=== PATIENT | male | born 1955 | race Caucasian/White ===

== ENCOUNTER 2021-11-10 18:02 | Outpatient (REF) | payer MEDICARE, BC, SELFPAY ==
[2021-11-10 20:00] LABS: Basophils Absolute Auto 0.02 K/uL (0.00-0.30); Basophils Percent Auto 0.4 % (0.0-3.0); Eosinophils Percent Auto 2.1 % (0.0-7.0); Hematocrit 38.1 % (37.0-53.0); Hemoglobin* 11.9 gm/dL (13.5-17.5); Immature Granulocytes Abs Auto 0.05 K/uL (0.00-0.30); Lymphocytes Absolute Auto 1.31 K/uL (0.90-2.90); Lymphocytes Percent Auto 27.1 % (20-44); Mean Corpuscular HGB Conc 31 gm/dL (32-36); Mean Corpuscular Hemoglobin 26 pg (26-34); Mean Corpuscular Volume 84 fL (80-100); Monocytes Percent Auto 7.4 % (0.0-11.0); Platelet Count* 215 K/uL (140-440); RDW Coefficient of Variation % 13.9 % (11.5-15.5); Red Blood Count 4.56 m/uL (4.30-5.90); White Blood Count* 4.84 K/uL (4.50-11.00)
[2021-11-10 20:01] LABS: Albumin* 3.9 g/dL (3.3-5.0); Chloride* 105 mmol/L (96-114); Potassium* 5.4 mmol/L (3.6-5.1); Sodium* 138 mmol/L (135-149)
[2021-11-10 20:03] LABS: Carbon Dioxide* 27 mmol/L (20-32); Creatinine* 2.1 mg/dL (0.5-1.5); Estimated Glomerular Filt Rate 34.08
[2021-11-10 20:04] LABS: Alanine Aminotransferase* 29 U/L (4-50); Alkaline Phosphatase* 126 U/L (40-150); Aspartate Amino Transferase* 33 U/L (12-35); Bilirubin Direct* 0.6 mg/dL (0.0-0.5); Bilirubin Total* 0.9 mg/dL (0.1-1.5); Blood Urea Nitrogen* 27 mg/dL (7-30); Calcium* 9.1 mg/dL (8.4-10.6); Glucose* 320 mg/dL (60-115); Magnesium* 1.7 mg/dL (1.5-2.6); Total Protein* 6.5 g/dL (6.0-8.3)
[2021-11-10 20:07] LABS: Slide Review Reflex No
[2021-11-15 02:01] LABS: Cyclosporine A by HPLC-MS/MS 624.7 ng/mL
== END 2021-11-10 18:03 | disposition home or self-care (01) ==
LOC: LAB 18:02
PROVIDERS: PCP Family Medicine; Visit Provider Internal Medicine Gastroenterology
DX: Z94.4 Liver transplant status (principal); Z79.899 Other long term (current) drug therapy
CPT/HCPCS: 36415; 80048; 80076; 80158; 83735; 85025

== ENCOUNTER 2022-03-12 07:52 | Outpatient (CLI) | payer MEDICARE, BC, SELFPAY | END 2022-03-12 07:53 | disposition home or self-care (01) | LOC: AMB 04-09 07:38 | PROVIDERS: PCP Family Medicine; Visit Provider Family Medicine | DX: R19.00 Intra-abdominal and pelvic swelling, mass and lump, unspecified site (principal); R10.9 Unspecified abdominal pain; R53.1 Weakness | CPT/HCPCS: A0425; A0427 ==

== ENCOUNTER 2022-05-02 14:00 | Outpatient (RCR) | payer MEDICARE, BC, SELFPAY ==
[2022-05-02 14:39] LABS: Basophils Absolute Auto 0.02 K/uL (0.00-0.30); Basophils Percent Auto 0.2 % (0.0-3.0); Eosinophils Absolute Auto 0.03 K/uL (0.00-0.50); Eosinophils Percent Auto 0.3 % (0.0-7.0); Immature Granulocytes Abs Auto 0.03 K/uL (0.00-0.30); Immature Granulocytes Pct Auto 0.3 %; Lymphocytes Percent Auto 18.1 % (20-44); Mean Corpuscular HGB Conc 32 gm/dL (32-36); Mean Corpuscular Hemoglobin 26 pg (26-34); Mean Corpuscular Volume 81 fL (80-100); Neutrophils Percent Auto 74.1 % (42.0-72.0); Platelet Count* 305 K/uL (140-440); RDW Coefficient of Variation % 15.5 % (11.5-15.5); Red Blood Count 4.22 m/uL (4.30-5.90)
[2022-05-02 14:41] LABS: Slide Review Reflex No
[2022-05-02 15:01] LABS: Chloride* 108 mmol/L (96-114)
[2022-05-02 15:03] LABS: Bilirubin Direct* 0.4 mg/dL (0.0-0.5); Bilirubin Total* 0.8 mg/dL (0.1-1.5); Carbon Dioxide* 24 mmol/L (20-32); Creatinine* 1.8 mg/dL (0.5-1.5); Estimated Glomerular Filt Rate 41 ml/min; Total Protein* 7.1 g/dL (6.0-8.3)
[2022-05-02 15:04] LABS: Alanine Aminotransferase* 26 U/L (4-50); Alkaline Phosphatase* 111 U/L (40-150); Aspartate Amino Transferase* 35 U/L (12-35); Blood Urea Nitrogen* 24 mg/dL (7-30); Calcium* 8.8 mg/dL (8.4-10.6); Glucose* 255 mg/dL (60-115); Magnesium* 1.3 mg/dL (1.5-2.6)
[2022-05-02 16:18] LABS: Sodium* 142 mmol/L (135-149)
[2022-05-05 10:24] LABS: Cyclosporine A by HPLC-MS/MS 178.9 ng/mL
== END 2023-04-04 15:17 | disposition home or self-care (01) ==
LOC: LAB 14:00
PROVIDERS: PCP Family Medicine; Visit Provider Internal Medicine Gastroenterology
DX: Z94.4 Liver transplant status (principal); Z79.899 Other long term (current) drug therapy
CPT/HCPCS: 36415; 80048; 80076; 80158; 83735; 85025

== ENCOUNTER 2022-06-01 12:44 | Outpatient (REF) | payer MEDICARE, BC, SELFPAY | END 2022-06-01 12:45 | disposition home or self-care (01) | LOC: NPINS 12:44 | PROVIDERS: PCP Family Medicine; Visit Provider Internal Medicine Gastroenterology | DX: Z94.4 Liver transplant status (principal); Z79.899 Other long term (current) drug therapy | CPT/HCPCS: 80158 ==

== ENCOUNTER 2022-06-05 14:37 | Outpatient (CLI) | payer MEDICARE, BC, OTHER, SELFPAY | END 2022-06-05 14:38 | disposition home or self-care (01) | LOC: AMB 06-06 22:49 | PROVIDERS: PCP Family Medicine; Visit Provider Family Medicine | DX: R53.1 Weakness (principal); R52 Pain, unspecified | CPT/HCPCS: A0425; A0427 ==

== ENCOUNTER 2022-11-03 22:06 | Outpatient (CLI) | payer MEDICARE, OTHER, BC, SELFPAY | END 2022-11-03 22:07 | disposition home or self-care (01) | LOC: AMB 11-07 09:42 | PROVIDERS: PCP Family Medicine; Visit Provider Emergency Medicine Emergency Medical Services | DX: R10.11 Right upper quadrant pain (principal) | CPT/HCPCS: A0425; A0427 ==

== ENCOUNTER 2022-11-03 23:03 | Emergency (ER) | payer MEDICARE, BC, SELFPAY ==
[2022-11-03 23:10] VITALS: BP 187/101; PULSE 91; RESP 20; TEMP 36.9; O2SAT 95
--- NOTE | 2022-11-03 23:27 | ED_ITS ---
HPI - Abdominal Pain General Chief Complaint: Abdominal Pain Stated Complaint: abdominal pain Time Seen by Provider: 11/03/22 23:19 History of Present Illness HPI narrative: This 67-year-old male comes in by ambulance because of uncontrolled abdominal pain. He has a mass in his liver and is taking oral Dilaudid at home for pain relief. He states that his pain became worse 3 or 4 hours ago. He did take 4 mg of Dilaudid at home without any relief. Ambulance personnel did establish an IV in he received fentanyl 100 mcg which also did not bring much relief. Patient does arrive with normal vital signs except for elevated blood pressure. He states that there is no other treatment for his condition in the plans that are involved currently other than pain relief. This was the main reason for his visit here tonight. Related Data Allergies Allergy/AdvReac Type Severity Reaction Status Date / Time No Known Drug Allergies Allergy Verified 11/03/22 23:15 Review of Systems Status of ROS Reports: 10 or more systems reviewed and unremarkable except as noted in History and below Narrative Constitutional: No fevers, no weight gain or loss. Eyes: No discharge. No vision changes. HENT: No congestion, no sore throat, no ear pain. Cardiovascular: No chest pain, no palpitations. Respiratory: No shortness of breath, no wheezes, no cough. Gastrointestinal: No vomiting, no diarrhea. Upper abdominal pain related to a mass in his liver. Genitourinary: No dysuria, no hematuria. Musculoskeletal: Normal range of motion. Skin: No rashes, no pruritis. Neurological: No dizziness, weakness, sensory change, speech change. Endo/Heme/Allergies: No bruising or bleeding. No polydipsia. Pysch: no suicidality, no anxiety, no insomnia. All other systems reviewed and are negative. [facility] Social History Smoking Status: Never smoker Do you use any of these nicotine containing products: None How often do you have a drink containing alcohol: never AUDIT-C Alcohol total score: 0 Non-prescribed substance use: denies use Exam Narrative: Exam Narrative: Constitutional: Well-developed, well-nourished, no acute distress. HEENT: Normocephalic, atraumatic. Neck: Normal range of motion. Nontender. Supple. Heart: Regular. No murmurs. Normal rate. Intact distal pulses. Lungs: Clear to auscultation. No chest discomfort. No wheezes, rhonchi, or rales. Abdomen: Normal bowel sounds. Upper epigastric abdominal pain. No rebound tenderness. Genitalia: Deferred. Back: No midline tenderness. Normal range of motion. Extremities: Normal range of motion. No injury. Skin: Intact. No rash. Warm. No erythema or pallor. Neurologic: No altered sensation. No weakness. Alert and oriented. Psychiatric: No suicidality. No anxiety or depression. No insomnia. Nursing notes and vitals signs are reviewed. Const: Vital Signs, click to edit/add: Vital Signs - 24 hr 11/03/22 23:10 Temperature 98.4 F Pulse Rate [Pulse Oximeter] 91 Respiratory Rate 20 Blood Pressure [Ri ght Upper Arm] 187/101 H Pulse Oximetry 95 Oxygen Delivery Me thod Room Air Course Vital Signs Vital signs: Initial Vital Signs Temperature 98.4 F 11/03/22 23:10 Temperature Source Temporal Artery Scan 11/03/22 23:10 Pulse Rate 91 11/03/22 23:10 Respiratory Rate 20 11/03/22 23:10 Blood Pressure 187/101 H 11/03/22 23:10 Blood Pressure Mean 129 H 11/03/22 23:10 Blood Pressure Position Supine 11/03/22 23:10 Pulse Oximetry 95 11/03/22 23:10 Oxygen Delivery Method Room Air 11/03/22 23:10 Vital Signs Temperature 98.4 F 11/03/22 23:10 Pulse Rate 91 11/03/22 23:10 Respiratory Rate 20 11/03/22 23:10 Blood Pressure 187/101 H 11/03/22 23:10 Pulse Oximetry 95 11/03/22 23:10 Oxygen Delivery Method Room Air 11/03/22 23:10 Temperature 98.4 F 11/03/22 23:10 Pulse Rate 91 11/03/22 23:10 Respiratory Rate 20 11/03/22 23:10 Blood Pressure 187/101 H 11/03/22 23:10 Pulse Oximetry 95 11/03/22 23:10 Oxygen Delivery Method Room Air 11/03/22 23:10 MDM - Abdominal Pain MDM Narrative Medical decision making narrative: This patient comes in with significantly worse pain in his upper abdomen related to a mass in his liver. The patient had family members that came soon after he arrived. He has been taking Dilaudid as needed at home but this did not help his pain today. He did receive an IV dose of Dilaudid 1 mg here in this brought sufficient relief to his pain. He did fall sleep. He is maintaining normal vital signs. I did again discuss with the patient and his family the options of checking labs or imaging studies. They declined these for now as he is in regular ongoing care with his doctors. The patient's states that she thinks that it may be time for him to receive hospice she has already made c onnection in this regard and plans to contact hospice next available opportunity. Discharge Plan Discharge Clinical Impression: Liver mass, Abdominal pain Patient Disposition: Home w/ Parent or Adult Condition: Improved Additional Instructions: Continue current plans. Take medications as needed and directed. Follow up with MD or return if worsening. Follow Up/Referrals: Ferny Hensley MD [Primary Care Provider] - Stand Alone Forms: [employer] Info Instructions
[2022-11-03] MEDS: HYDROmorphone 0.5 mg/0.5 ml inj 1 MG IVP (23:30)
[2022-11-04] VITALS: BP 172/97; PULSE 100; RESP 18; TEMP 36.9; O2SAT 95
== END 2022-11-04 00:19 | disposition home or self-care (01) ==
LOC: ED 11-04 00:06
PROVIDERS: Emergency Provider Emergency Medicine Emergency Medical Services; PCP Family Medicine
DX: R10.9 Unspecified abdominal pain (principal); K76.89 Other specified diseases of liver
CPT/HCPCS: 96374; 99283; 99284; J1170

== ENCOUNTER 2022-11-11 17:33 | Emergency (ER) | payer MEDICARE, OTHER, BC, SELFPAY ==
[2022-11-11] VITALS (25 sets, daily range): BP systolic 168–190; BP diastolic 86–101; PULSE 66–80; RESP 16; TEMP 36.6; O2SAT 96–99; BMI 25.8
--- NOTE | 2022-11-11 17:45 | ED.GENADULT ---
HPI - General Adult General Time Seen by Provider: 17:45 Date Seen: 11/11/22 Chief complaint: Dizziness/Vertigo Stated complaint: light headed, dizzy Time Seen by Provider: 11/11/22 17:34 Source: patient and RN notes reviewed Mode of arrival: ambulatory Limitations: no limitations History of Present Illness HPI narrative: This 67-year-old gentleman is coming in with weakness, lightheadedness, dizziness and that got progressive over this afternoon. He has underlying liver cancer, recurrent. 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 Hepatocellular carcinoma. This surgery was done at the [facility]. They state there was a period of no follow-up due to COVID in his immunosuppression states that they did not want him coming in. He unfortunately was diagnosed with liver mass, abdominal wall mass that was recurrent liver cancer. He had a good day yesterday, was outside, helped water the garden. He states his appetite is overall fine. He will periodically have some nausea but overall appetite is fine. Denies any cough or cold symptoms, no chest pain, no shortness of breath, has chronic right upper quadrant abdomen and abdominal wall pain which is not new or changed. In denies any urinary symptoms, no changes in bowel habits. He denies any fevers or chills, no night sweats. When his pain goes up, his blood pressure seems to go up. His did give him an extra dilaudid orally at home just prior to coming in. They report progressive since of generalize weakness and lightheadedness/dizziness. Patient states he both felt like he might pass out as well as a sense of spinning sensation. States his legs just felt weak, denies any focal neurologic such as extremity or individual body part incoordination/malfunction, not working. Weakness is a sense of global weakness. His feels that his blood pressure does go up with his pain at times, wonders about talking to blood pressure management about her primary care provider. This let us into discussion about his cancer. He is on an oral regimen of chemotherapy which sounds like it is palliative, they tell me the oncologist has told them there is nothing further that can be done. Patient becomes tearful, does cry, he obviously still would like to keep living. They do understand this diagnosis is terminal for him. He is not enrolled in hospice yet. He would like some sense of reassurance that he is okay. Related Data Home Medications Medication Instructions Recorded Confirmed amlodipine 10 mg tablet 10 mg PO DAILY 11/11/22 11/11/22 apixaban 5 mg tablet (Eliquis) 5 mg PO BID 11/11/22 11/11/22 cyclosporine modified 100 mg 100 mg PO Q12H 11/11/22 11/11/22 capsule hydromorphone 2 mg tablet 2 - 4 mg PO Q4H PRN severe pain 11/11/22 11/11/22 insulin aspart U-100 100 unit/mL subcut 3XD 11/11/22 (3 mL) subcutaneous pen (Novolog FlexPen U-100 Insulin aspart) losartan 50 mg tablet mg PO 11/11/22 magnesium oxide 400 mg (241.3 mg 400 mg PO DAILY 11/11/22 11/11/22 magnesium) tablet methocarbamol 500 mg tablet 250 mg PO QID PRN muscle spasm 11/11/22 11/11/22 metoprolol tartrate 25 mg tablet 25 mg PO BID 11/11/22 11/11/22 multivitamin-iron sulfate 15 1 tab PO DAILY 11/11/22 11/11/22 mg-folic acid 400 mcg tablet (Tab-A-Hawa Multivitamin w-iron) ondansetron 4 mg disintegrating 4 mg PO Q8H PRN nausea/vomiting 11/11/22 11/11/22 tablet pantoprazole 40 mg tablet,delayed 40 mg PO QAM 11/11/22 11/11/22 release sorafenib 200 mg tablet 400 mg PO BID 11/11/22 11/11/22 torsemide 10 mg tablet 20 mg PO BID 11/11/22 11/11/22 Allergies Allergy/AdvReac Type Severity Reaction Status Date / Time meclizine Allergy Unknown Verified 11/11/22 19:41 morphine Allergy Unknown Verified 11/11/22 19:41 Review of Systems Status of ROS: Reports: 10 or more systems reviewed and unremarkable except as noted in History and below [facility] Social History Smoking Status: Never smoker Do you use any of these nicotine containing products: None How often do you have a drink containing alcohol: never AUDIT-C Alcohol total score: 0 Non-prescribed substance use: denies use Exam Const: Vital Signs, click to edit/add: Vital Signs - 24 hr 11/11/22 17:39 11/11/22 17:41 11/11/22 17:42 Temperature 97.8 F Pulse Rate 72 76 Pulse Rate [Pulse Oximeter] 74 Respiratory Rate 16 Blood Pressure 178/101 H 175/94 H Blood Pressure [Ri ght Upper Arm] 178/101 H Pulse Oximetry 98 97 98 Oxygen Delivery Me thod Room Air 11/11/22 17:43 11/11/22 17:45 11/11/22 18:00 Temperature Pulse Rate 72 70 76 Pulse Rate [Pulse Oximeter] Respiratory Rate Blood Pressure Blood Pressure [Ri ght Upper Arm] Pulse Oximetry 98 98 98 Oxygen Delivery Me thod 11/11/22 18:01 11/11/22 18:02 11/11/22 18:29 Temperature Pulse Rate 76 73 67 Pulse Rate [Pulse Oximeter] Respiratory Rate Blood Pressure 168/89 H Blood Pressure [Ri ght Upper Arm] Pulse Oximetry 98 98 98 Oxygen Delivery Me thod 11/11/22 18:30 11/11/22 18:31 11/11/22 18:32 Temperature Pulse Rate 67 66 68 Pulse Rate [Pulse Oximeter] Respiratory Rate Blood Pressure 181/96 H Blood Pressure [Ri ght Upper Arm] Pulse Oximetry 97 97 99 Oxygen Delivery Me thod 11/11/22 18:46 11/11/22 19:00 11/11/22 19:01 Temperature Pulse Rate 69 70 70 Pulse Rate [Pulse Oximeter] Respiratory Rate Blood Pressure 190/91 H Blood Pressure [Ri ght Upper Arm] Pulse Oximetry 98 99 96 Oxygen Delivery Me thod Documenting provider has reviewed patient's vital signs: yes Common normals: no apparent distress, oriented x3, no limitations, alert and well nourished General appearance: cooperative, comfortable and frail appearing Other: Tearful at times, does make eye contact and is certainly in very pleasant gentleman. HENMT: Common normals: normocephalic, head/scalp atraumatic, hearing grossly normal bilaterally, external ears normal and external nose normal Head and scalp: normocephalic and atraumatic Face and sinus: normal facial exam Nose: external nose normal External ear: external ears normal Eye: Common normals: PERRL, EOMs intact bilaterally, conjunctivae normal and no scleral icterus Conjunctiva: conjunctiva(e) normal Pupil: PERRL Neck & C-Spine: Common normals: full ROM, no lymphadenopathy, supple, no meningeal signs, no JVD and thyroid normal Thyroid: thyroid normal Chest: Common normals: inspection of chest normal Other: Complains of tenderness when I palpate over the right lower rib margin overlying the liver. Do not feel any definitive mass on the ribs themselves. Resp: Common normals: normal respiratory effort, no retractions, no use of accessory muscles and clear to auscultation bilaterally Effort & inspection: able to speak in complete sentences Auscultation: clear to auscultation bilaterally Cardio: Common normals: no JVD, regular rate, regular rhythm, S1 normal heart sound, S2 normal heart sound, no gallops, no clicks and no murmurs Rate: regular rate Rhythm: regular rhythm Heart sounds: S1 normal and S2 normal GI: Common normals: Normal to inspection, nondistended, normoactive bowel sounds present Other: Has palpable about slightly smaller than a golf ball size mass that I palpate in the right upper quadrant just below the right rib border. Seems like this is probably attach the abdominal wall. He is tender in the right upper quadrant along the liver border edge, do feel some irregularity to it. : Common normals: no CVA tenderness Bladder/kidney exam: no CVA tenderness Back & Pelvis: Common normals: no CVA tenderness and straight leg raise negative bilaterally Extremity: Common normals: no calf tenderness and no pedal edema Neuro: Common normals: oriented x3, CN's II-XII intact bilaterally, moves all extremities, no focal motor deficits and no sensory deficits noted Sensorium/orientation: alert Meningeal signs: no meningeal signs Course Course Hospital Course: This 67-year-old male is presenting with complaints of both lightheadedness/dizziness as well as vertigo, weakness as well. His underlying liver cancer, is chronically anticoagulated. Infectious etiology are certainly a possibility given his immunocompromised state being status post liver transplant in on the immunosuppressants. Will get a full complement of labs, start with head CT and chest x-ray. He is in agreement with plan. Currently hemodynamically stable and afebrile. Blood pressure actually is elevated he is known to have hypertension. Will continue to follow. Is exhibiting no chest pain. With the dizziness and complaint of vertigo but nonfocal neurologic exam, underlying cancer, do think a head CT noncontrast is indicated. Do not feel he needs any advanced imaging such as an MRI at this time. Will await the head CT result. Reevaluation(s) Time of Reevaluation #1: 19:28 Reevaluation #1: Have reviewed normal head CT, normal chest x-ray. Did review the hemoglobin of 9.5, they do not know where his hemoglobin has been running. This is not a level that I would transfuse but would have them follow with their clinic to ensure that this is his baseline. Did discuss the elevated procalcitonin. He is feeling better with the IV fluids, thinks he can urinate now. We will collect urinalysis. With elevated procalcitonin, did review that that can be indicative of an underlying infection. Patient would like to proceed with chest abdomen pelvis CT imaging. Time of Reevaluation #2: 20:52 Reevaluation #2: Patient is advised of the CT findings, did review the abdominal wall masses, the left axillary mass and the for a cardiac IV see nodular peripheral lesions. They believe all of these to have been there. He is on Eliquis for atrial fibrillation but should ideally protect him from an knee thrombotic events. He is not symptomatic for any concern for DVT or pulmonary embolus with his symptoms on arrival. He is feeling better with just 500 mL IV fluids and actually was requesting to go home at 8:25 p.m. we did need to wait for the urinalysis in this CT to be read. He is feeling better and requested discharge to home. Vital Signs Vital signs: Initial Vital Signs Temperature 97.8 F 11/11/22 17:39 Temperature Source Temporal Artery Scan 11/11/22 17:39 Pulse Rate 74 11/11/22 17:39 Respiratory Rate 16 11/11/22 17:39 Blood Pressure 178/101 H 11/11/22 17:39 Blood Pressure Mean 126 H 11/11/22 17:39 Blood Pressure Position Supine 11/11/22 17:39 Pulse Oximetry 98 11/11/22 17:39 Oxygen Delivery Method Room Air 11/11/22 17:39 Vital Signs Temperature 97.8 F 11/11/22 17:39 Pulse Rate 74 11/11/22 17:39 Respiratory Rate 16 11/11/22 17:39 Blood Pressure 178/101 H 11/11/22 17:39 Pulse Oximetry 98 11/11/22 17:39 Oxygen Delivery Method Room Air 11/11/22 17:39 Temperature 97.8 F 11/11/22 17:39 Pulse Rate 70 11/11/22 19:01 Respiratory Rate 16 11/11/22 17:39 Blood Pressure 190/91 H 11/11/22 19:01 Pulse Oximetry 96 11/11/22 19:01 Oxygen Delivery Method Room Air 11/11/22 17:39 Medical Decision Making Lab Data Lab results reviewed: Yes I reviewed the patient's lab results Labs: Lab Results 11/11/22 11/11/22 Range/Units 18:30 19:40 WBC 4.06 L (4.50-11.00) K/uL RBC 3.55 L (4.30-5.90) m/uL Hgb 9.5 L (13.5-17.5) gm/dL Hct 30.3 L (37.0-53.0) % MCV 85 (80-100) fL MCH 27 (26-34) pg MCHC 31 L (32-36) gm/dL RDW Coeff of Brissa 15.4 (11.5-15.5) % Plt Count 218 (140-440) K/uL Neut % (Auto) 76.4 H (42.0-72.0) % Lymph % (Auto) 16.0 L (20-44) % [place] % (Auto) 6.2 (0.0-11.0) % Eos % (Auto) 0.7 (0.0-7.0) % Baso % (Auto) 0.2 (0.0-3.0) % Neut # (Auto) 3.10 (1.7-7.0) K/uL Lymph # (Auto) 0.60 L (0.90-2.90) K/uL [place] # (Auto) 0.30 (0.00-0.90) K/UL Eos # (Auto) 0.00 (0.00-0.50) K/uL Baso # (Auto) 0.00 (0.00-0.30) K/uL Abs Immat Gran (auto) 0.00 (0.00-0.30) K/uL Imm/Tot Granulo (auto) 0.5 % Sodium 140 (135-149) mmol/L Potassium 3.7 (3.6-5.1) mmol/L Chloride 108 (96-114) mmol/L Carbon Dioxide 24 (20-32) mmol/L BUN 21 (7-30) mg/dL Creatinine 1.6 H (0.5-1.5) mg/dL Estimated Creat Clear 46.26 Estimated GFR 47 ml/min Glucose 148 H (60-115) mg/dL Lactate 1.3 (0.5-1.9) mmol/L Calcium 8.2 L (8.4-10.6) mg/dL Magnesium 1.8 (1.5-2.6) mg/dL Total Bilirubin 0.6 (0.1-1.5) mg/dL AST 41 H (12-35) U/L ALT 29 (4-50) U/L Alkaline Phosphatase 142 (40-150) U/L Troponin I 0.02 (0.01-0.04) ng/mL NT-Pro-B Natriuret Pep 2190 pg/mL Total Protein 6.9 (6.0-8.3) g/dL Albumin 3.5 (3.3-5.0) g/dL Procalcitonin 0.63 H (<0.50) ng/mL Urine Color Yellow (Yellow) Urine Appearance Clear (Clear) Urine pH 6.0 (5.0-8.5) Ur Specific Warren 1.025 (1.000-1.030) Urine Protein 3+ A (Negative) Urine Glucose (UA) Trace A (Negative) Urine Ketones Negative (Negative) Urine Blood 1+ A (Negative) Urine Nitrite Negative (Negative) Urine Bilirubin Negative (Negative) Urine Urobilinogen 0.2 (0.2-1.0) Ur Leukocyte Esterase Negative (Negative) Urine RBC 2-5 A (0-2) Urine WBC 0-2 (0-5) Urine WBC Clumps None (None) Ur Squamous Epith Cells Not Reportable Urine Bacteria Few A (None) Imaging Data CT scan - head: Attestation: I have reviewed the pertinent imaging results. Radiologist's impression: Patient: NIKKI GUZMAN Facility:?[facility] Patient ID:?[id number] Site Patient ID:?[id number]. Site :?1955 Study:?CT Head WITHOUT-11/11/2022 6:24:44 PM Ordering Physician:?Kim Ware Final Report: INDICATION: Lightheadedness. Dizziness. TECHNIQUE: CT of the head without contrast. Coronal and sagittal reformats are included. COMPARISON: None. FINDINGS: No CT evidence of acute cortical infarct. No loss of murillo white matter differentiation. No hyperdense vessels to suggest intracranial thrombus. No acute intracranial hemorrhage. No mass effect or midline shift. No hydrocephalus or extra-axial collections. Patchy hypoattenuation throughout the supratentorial white matter, typical for chronic microvascular ischemic change. Thick vascular calcifications intradural vertebral arteries and carotid siphons. No acute osseous abnormalities. Mastoid air cells and paranasal sinuses are clear. Normal soft tissues. IMPRESSION: IMPRESSION:1. No CT evidence of acute cortical infarct. No acute intracranial hemorrhage. No other acute intracranial findings. Please note that all CT scans at this facility use dose modulation, iterative reconstruction, and/or weight-based dosing when appropriate to reduce radiation dose to as low as reasonably achievable. Dictated by Brodie Martinez MD @ 11/11/2022 6:42:15 PM (Electronic Signature) Chest x-ray: Attestation: I have reviewed the pertinent imaging results. My impression: I see no acute pathology on patient's chest x-ray, await Radiology over-read. Radiologist's impression: Patient: NIKKI GUZMAN Facility:?[facility] Patient ID:?[id number] :?1955 Study:?XRay Chest 2 IMAGES-11/11/2022 6:27:34 PM Ordering Physician:?Kim Ware Final Report: INDICATION: Dizzy, lightheaded TECHNIQUE: Two view chest. COMPARISON: None available FINDINGS: Thoracic aortic calcifications. No cardiomegaly. No suspicious focal or diffuse pulmonary opacities. No pneumothorax or pleural effusion. No aggressive appearing osseous lesion. IMPRESSION: No acute pulmonary process. Dictated by Andres Mcmahan MD @ 11/11/2022 7:03:38 PM (Electronic Signature) CT Chest/Ab/Pelvis: Attestation: I have reviewed the pertinent imaging results. Radiologist's impression: Patient: NIKKI GUZMAN Facility:?[facility] Patient ID:?[id number] :?1955 Study:?CT Chest/Abd/Pelvis w/ 89cc [id number]/9/2023 8:04:47 PM Ordering Physician:Aiden Ware Final Report: INDICATION: Liver cancer. TECHNIQUE: CT chest, abdomen and pelvis acquired with 89 cc Isovue 370 IV contrast. COMPARISON: None. FINDINGS: CHEST Lungs and pleura: Right upper lobe calcified granuloma. Additional right lower lobe granuloma. Lungs are clear. No suspicious nodules or infiltrates. No effusions, thickening, or pneumothorax. Heart and vasculature: Heart size is normal. Thoracic aorta and pulmonary artery are normal in caliber. Coronary artery calcifications. Lymph node/mediastinum: Incidental 1.6 centimeter right thyroid nodule. Large left axillary mass, measuring approximately 8.5 centimeter. No mediastinal, or hilar adenopathy. Chest wall: Normal. Bones: No suspicious bone lesions. ABDOMEN AND PELVIS: Liver: No concerning hepatic lesions. Gallbladder and bile ducts: Cholecystectomy. Pancreas: Tiny 5 millimeter pancreatic body lesion, possibly side-branch IPMN. Spleen: Normal in caliber. No masses. Adrenal glands: Unremarkable. No masses. Kidneys: Normal in caliber. No suspicious masses. GI tract: Normal in caliber and appearance. No sign of mass or inflammation. Vasculature: Few rounded foci along the peripheral aspect of the infra cardiac IVC (series 2/image 129). Mild aortoiliac arterial calcifications. Mesenteric arteries are patent. Lymph nodes: No lymphadenopathy. Omentum/peritoneum/retroperitoneum/abdominal wall: Large heterogeneous mass involving the right abdominal mesentery and adjacent abdominal wall measuring approximately 15.1 x 9.9 x 14.9 centimeters. Additional adjacent ventral abdominal wall mass measuring up to 3.7 centimeters (series 6/image 192). Additional soft tissue thickening no free air. No drainable fluid collections. Pelvic organs: Mildly distended bladder. Bones: No suspicious bone lesions. IMPRESSION: Findings suggestive of known malignancy, including: - Large heterogeneous mass involving the right abdominal mesentery with invasion into the adjacent abdominal wall, difficult to accurately measure but measuring up to 14.9 centimeters. - Additional adjacent 3.7 centimeter ventral mesenteric/abdominal wall lesion. - Soft tissue thickening about the josé luis hepatis about the common bile duct and portal vein, possibly sequela of prior liver transplantation. - Large left axillary mass measuring approximately 8.5 centimeters. - Few rounded foci along the peripheral aspect of the infra cardiac IVC, possibly tumor thrombus given appearance. Lack of prior imaging does not allow for assessment of interval change. Otherwise, no acute intra-abdominal/pelvic abnormality. Case discussed with Jeanie Ware at 8:40 p.m. on November 11, 2022. Please note that all CT scans at this facility use dose modulation, iterative reconstruction, and/or weight-based dosing when appropriate to reduce radiation dose to as low as reasonably achievable. Dictated by Jake Finley MD @ 11/11/2022 8:40:13 PM (Electronic Signature) ECG Data Attestation: I personally reviewed and interpreted this ECG as follows: (Normal sinus rhythm, 73 beats per minute. No concerning ischemic change. QT corrected 442 milliseconds.) Prior ECG tracings: not available for review Critical Care Time Critical Care Time Critical Care Time: No Discharge Plan Discharge Clinical Impression: Cancer of liver, Dizziness, Weakness, Hypertension Patient Disposition: Home, Self-Care Condition: Stable Instructions: Weakness (ED), Hypertension (ED), Dizziness (ED) Additional Instructions: Recommend follow-up with your primary care provider this next week. Should you start to develop fevers, any specific symptoms suggestive of infection, please seek re-evaluation. Can have your primary care provider re-evaluate your blood pressure in see if further management is indicated. Uncontrolled pain is known to increased blood pressure, make sure you have reviewed your pain management with your primary care provider as well. Activity Level: Activity as Tolerated Discharge Diet: 2 gm Sodium Prescriptions: No Action losartan 50 mg tablet PO methocarbamol 500 mg tablet 250 mg PO QID PRN (Reason: muscle spasm) torsemide 10 mg tablet 20 mg PO BID hydromorphone 2 mg tablet 2 - 4 mg PO Q4H PRN (Reason: severe pain) magnesium oxide 400 mg (241.3 mg magnesium) tablet 400 mg PO DAILY amlodipine 10 mg tablet 10 mg PO DAILY pantoprazole 40 mg tablet,delayed release (DR/EC) 40 mg PO QAM cyclosporine modified 100 mg capsule 100 mg PO Q12H ondansetron 4 mg tablet,disintegrating 4 mg PO Q8H PRN (Reason: nausea/vomiting) insulin aspart U-100 [Novolog FlexPen U-100 Insulin] 100 unit/mL (3 mL) insulin pen subcut 3XD metoprolol tartrate 25 mg tablet 25 mg PO BID sorafenib 200 mg tablet 400 mg PO BID Eliquis 5 mg tablet 5 mg PO BID Tab-A-Hawa Multivitamin w-iron 15 mg iron- 400 mcg tablet 1 tab PO DAILY Follow Up/Referrals: Ferny Hensley MD [Primary Care Provider] - Stand Alone Forms: [facility] Info Instructions
--- NOTE | 2022-11-11 18:01 | CRLHL7_ITS ---
For Patients: As a result of the Century Cures Act, medical imaging exams and procedure reports are released immediately into your electronic medical record. You may view this report before your referring provider. If you have questions, please contact your health care provider. INDICATION: Lightheadedness. Dizziness. TECHNIQUE: CT of the head without contrast. Coronal and sagittal reformats are included. COMPARISON: None. FINDINGS: No CT evidence of acute cortical infarct. No loss of murillo white matter differentiation. No hyperdense vessels to suggest intracranial thrombus. No acute intracranial hemorrhage. No mass effect or midline shift. No hydrocephalus or extra-axial collections. Patchy hypoattenuation throughout the supratentorial white matter, typical for chronic microvascular ischemic change. Thick vascular calcifications intradural vertebral arteries and carotid siphons. No acute osseous abnormalities. Mastoid air cells and paranasal sinuses are clear. Normal soft tissues. IMPRESSION: IMPRESSION:1. No CT evidence of acute cortical infarct. No acute intracranial hemorrhage. No other acute intracranial findings. Please note that all CT scans at this facility use dose modulation, iterative reconstruction, and/or weight-based dosing when appropriate to reduce radiation dose to as low as reasonably achievable. Dictated by Brodie Martinez MD @ 11/11/2022 6:42:15 PM (Electronically Signed)
--- NOTE | 2022-11-11 18:02 | CRLHL7_ITS ---
For Patients: As a result of the Cures Act, medical imaging exams and procedure reports are released immediately into your electronic medical record. You may view this report before your referring provider. If you have questions, please contact your health care provider. INDICATION: Dizzy, lightheaded TECHNIQUE: Two view chest. COMPARISON: None available FINDINGS: Thoracic aortic calcifications. No cardiomegaly. No suspicious focal or diffuse pulmonary opacities. No pneumothorax or pleural effusion. No aggressive appearing osseous lesion. IMPRESSION: No acute pulmonary process. Dictated by Andres Mcmahan MD @ 11/11/2022 7:03:38 PM (Electronically Signed)
[2022-11-11 18:39] LABS: Lactate* 1.3 mmol/L (0.5-1.9)
[2022-11-11 18:40] LABS: Basophils Percent Auto 0.2 % (0.0-3.0); Eosinophils Percent Auto 0.7 % (0.0-7.0); Hematocrit 30.3 % (37.0-53.0); Hemoglobin* 9.5 gm/dL (13.5-17.5); Immature Granulocytes Pct Auto 0.5 %; Mean Corpuscular HGB Conc 31 gm/dL (32-36); Mean Corpuscular Hemoglobin 27 pg (26-34); Mean Corpuscular Volume 85 fL (80-100); Monocytes Percent Auto 6.2 % (0.0-11.0); Neutrophils Percent Auto 76.4 % (42.0-72.0); Platelet Count* 218 K/uL (140-440); RDW Coefficient of Variation % 15.4 % (11.5-15.5); Red Blood Count 3.55 m/uL (4.30-5.90); White Blood Count* 4.06 K/uL (4.50-11.00)
[2022-11-11 18:45] LABS: Slide Review Reflex No
[2022-11-11 18:56] LABS: Albumin* 3.5 g/dL (3.3-5.0)
[2022-11-11 18:57] LABS: Chloride* 108 mmol/L (96-114); Potassium* 3.7 mmol/L (3.6-5.1); Sodium* 140 mmol/L (135-149)
[2022-11-11 18:59] LABS: Aspartate Amino Transferase* 41 U/L (12-35); Bilirubin Total* 0.6 mg/dL (0.1-1.5); Carbon Dioxide* 24 mmol/L (20-32); Creatinine* 1.6 mg/dL (0.5-1.5); Est. Creatinine Clearance* 46.26; Estimated Glomerular Filt Rate 47 ml/min
[2022-11-11 19:00] LABS: Alanine Aminotransferase* 29 U/L (4-50); Alkaline Phosphatase* 142 U/L (40-150); Blood Urea Nitrogen* 21 mg/dL (7-30); Glucose* 148 mg/dL (60-115); Total Protein* 6.9 g/dL (6.0-8.3)
[2022-11-11 19:01] LABS: Calcium* 8.2 mg/dL (8.4-10.6); Magnesium* 1.8 mg/dL (1.5-2.6)
[2022-11-11 19:10] LABS: NT Pro B Type NatriureticPept* 2190 pg/mL
[2022-11-11 19:12] LABS: Troponin I* 0.02 ng/mL (0.01-0.04)
[2022-11-11 19:17] LABS: Procalcitonin* 0.63 ng/mL (<0.50)
--- NOTE | 2022-11-11 19:30 | CRLHL7_ITS ---
For Patients: As a result of the 21st Century Cures Act, medical imaging exams and procedure reports are released immediately into your electronic medical record. You may view this report before your referring provider. If you have questions, please contact your health care provider. INDICATION: Liver cancer. TECHNIQUE: CT chest, abdomen and pelvis acquired with 89 cc Isovue 370 IV contrast. COMPARISON: None. FINDINGS: CHEST Lungs and pleura: Right upper lobe calcified granuloma. Additional right lower lobe granuloma. Lungs are clear. No suspicious nodules or infiltrates. No effusions, thickening, or pneumothorax. Heart and vasculature: Heart size is normal. Thoracic aorta and pulmonary artery are normal in caliber. Coronary artery calcifications. Lymph node/mediastinum: Incidental 1.6 centimeter right thyroid nodule. Large left axillary mass, measuring approximately 8.5 centimeter. No mediastinal, or hilar adenopathy. Chest wall: Normal. Bones: No suspicious bone lesions. ABDOMEN AND PELVIS: Liver: No concerning hepatic lesions. Gallbladder and bile ducts: Cholecystectomy. Pancreas: Tiny 5 millimeter pancreatic body lesion, possibly side-branch IPMN. Spleen: Normal in caliber. No masses. Adrenal glands: Unremarkable. No masses. Kidneys: Normal in caliber. No suspicious masses. GI tract: Normal in caliber and appearance. No sign of mass or inflammation. Vasculature: Few rounded foci along the peripheral aspect of the infra cardiac IVC (series 2/image 129). Mild aortoiliac arterial calcifications. Mesenteric arteries are patent. Lymph nodes: No lymphadenopathy. Omentum/peritoneum/retroperitoneum/abdominal wall: Large heterogeneous mass involving the right abdominal mesentery and adjacent abdominal wall measuring approximately 15.1 x 9.9 x 14.9 centimeters. Additional adjacent ventral abdominal wall mass measuring up to 3.7 centimeters (series 6/image 192). Additional soft tissue thickening no free air. No drainable fluid collections. Pelvic organs: Mildly distended bladder. Bones: No suspicious bone lesions. IMPRESSION: Findings suggestive of known malignancy, including: - Large heterogeneous mass involving the right abdominal mesentery with invasion into the adjacent abdominal wall, difficult to accurately measure but measuring up to 14.9 centimeters. - Additional adjacent 3.7 centimeter ventral mesenteric/abdominal wall lesion. - Soft tissue thickening about the josé luis hepatis about the common bile duct and portal vein, possibly sequela of prior liver transplantation. - Large left axillary mass measuring approximately 8.5 centimeters. - Few rounded foci along the peripheral aspect of the infra cardiac IVC, possibly tumor thrombus given appearance. Lack of prior imaging does not allow for assessment of interval change. Otherwise, no acute intra-abdominal/pelvic abnormality. Case discussed with Jeanie Ware at 8:40 p.m. on November 11, 2022. Please note that all CT scans at this facility use dose modulation, iterative reconstruction, and/or weight-based dosing when appropriate to reduce radiation dose to as low as reasonably achievable. Dictated by Jake Finley MD @ 11/11/2022 8:40:13 PM (Electronically Signed)
[2022-11-11 19:46] LABS: Appearance Urine Clear (Clear); Bilirubin Urine Negative (Negative); Blood Urine 1+ (Negative); Color Urine Yellow (Yellow); Glucose Urine Trace (Negative); Ketones Urine Negative (Negative); Leukocyte Esterase Urine Negative (Negative); Nitrite Urine Negative (Negative); Protein Urine 3+ (Negative); Specific Gravity Urine 1.025 (1.000-1.030); Urobilinogen Urine 0.2 (0.2-1.0)
[2022-11-11 19:53] LABS: Bacteria Urine Few; WBC Urine 0-2 (0-5)
== END 2022-11-11 21:41 | disposition home or self-care (01) ==
PROVIDERS: Emergency Provider Family Medicine; PCP Family Medicine
DX: R42 Dizziness and giddiness (principal); R53.1 Weakness; I10 Essential (primary) hypertension; C22.0 Liver cell carcinoma
CPT/HCPCS: 36415; 70450; 71046; 71260; 74177; 80053; 81001; 83605; 83735; 83880; 84145; 84484; 85025; 87086; 93005; 99284; 99285; Q9967

== ENCOUNTER 2023-01-05 22:18 | Emergency (ER) | payer MEDICARE, BC, SELFPAY ==
[2023-01-05 22:26] VITALS: BP 142/81; PULSE 73; RESP 18; TEMP 36.5; O2SAT 95; BMI 28.8
[2023-01-05 23:30] VITALS: BP 148/81; PULSE 77; RESP 18; O2SAT 95
[2023-01-05 23:46] VITALS: BP 151/83; PULSE 77; RESP 16; O2SAT 94
[2023-01-05 23:48] VITALS: BP 144/83; PULSE 74; RESP 16; O2SAT 95
[2023-01-06] VITALS (11 sets, daily range): BP systolic 126–159; BP diastolic 65–91; PULSE 68–78; RESP 16–18; O2SAT 93–97
--- NOTE | 2023-01-06 00:15 | CRLHL7_ITS ---
For Patients: As a result of the Century Cures Act, medical imaging exams and procedure reports are released immediately into your electronic medical record. You may view this report before your referring provider. If you have questions, please contact your health care provider. INDICATION: Dyspnea. TECHNIQUE: Chest 2 views. COMPARISON: 11/11/2022. FINDINGS: Cardiovascular and mediastinum: Heart size and vasculature are normal in caliber and appearance. Lungs and pleural spaces: Lungs are clear. No sign of infiltrate or mass. No sign of pleural effusion. No pneumothorax. Bones and soft tissues: No significant findings. IMPRESSION: No acute findings and no significant changes from the prior exam. Dictated by Jhonathan Choi MD @ 01/06/2023 1:57:22 AM (Electronically Signed)
--- NOTE | 2023-01-06 00:18 | ED_ITS ---
HPI - General Adult General Chief complaint: Shortness of Breath/Dyspnea Stated complaint: short of breath, weakness, has abdominal cancer Time Seen by Provider: 01/06/23 00:01 Source: patient and family Limitations: no limitations History of Present Illness HPI narrative: 67-year-old male with known history of recurrence of metastatic liver cancer presents to the emergency department with gradually worsening weakness and shortness of breath. Symptoms have come on gradually but seem to be accelerating over the last half day. No fevers, no injury, no trauma. He has a history of chronic pain, most bothersome at the abdominal right upper quadrant area. For this he takes an average of 30 mg of oral hydromorphone daily. Family reports that he can typically get himself to the bathroom with no difficulty but struggled to do so due to shortness of breath today. There is no productive cough. No fever. He denies chest pain or palpitations. He has no history of arrhythmia. He has had chronic anemia and worsening in nature. He has known GI bleeding and is scheduled for colonoscopy soon. He has been off of his Eliquis for about 24 hours to facilitate that upcoming colonoscopy as they wanted him off of the Eliquis for 2 weeks. The rationale for that is a little unclear as it should have been out of his system within just a couple of days. He is diabetic but they say he has no history of heart disease. He is status p ost liver transplant and continues to take immunosuppressants. They have not noticed any gross urinary bleeding but he does have ongoing rectal bleeding but it is not worse than usual per their report. He does struggle with constipation due to his narcotic use. Denies vomiting. Currently rating his pain is 9/10 in the right upper quadrant area. Past medical history is most notable for the metastatic liver cancer with status post liver transplant and chronic pain. He also has diabetes and hypertension. ROS is notable for the chronic pain, generalized and respiratory symptoms as described above, otherwise denies times 12 systems. Related Data Home Medications Medication Instructions Recorded Confirmed amlodipine 10 mg tablet 10 mg PO DAILY 11/11/22 11/30/22 apixaban 5 mg tablet (Eliquis) 5 mg PO BID 11/11/22 11/30/22 cyclosporine modified 100 mg 100 mg PO Q12H 11/11/22 11/30/22 capsule hydromorphone 2 mg tablet 2 - 4 mg PO Q4H PRN severe pain 11/11/22 11/30/22 insulin aspart U-100 100 unit/mL subcut 3XD 11/11/22 11/30/22 (3 mL) subcutaneous pen (Novolog FlexPen U-100 Insulin aspart) losartan 50 mg tablet mg PO 11/11/22 11/30/22 magnesium oxide 400 mg (241.3 mg 400 mg PO DAILY 11/11/22 11/30/22 magnesium) tablet methocarbamol 500 mg tablet 250 mg PO QID PRN muscle spasm 11/11/22 11/30/22 metoprolol tartrate 25 mg tablet 25 mg PO BID 11/11/22 11/30/22 multivitamin-iron sulfate 15 1 tab PO DAILY 11/11/22 11/30/22 mg-folic acid 400 mcg tablet (Tab-A-Hawa Multivitamin w-iron) ondansetron 4 mg disintegrating 4 mg PO Q8H PRN nausea/vomiting 11/11/22 11/30/22 tablet pantoprazole 40 mg tablet,delayed 40 mg PO QAM 11/11/22 11/30/22 release sorafenib 200 mg tablet 400 mg PO BID 11/11/22 11/30/22 torsemide 10 mg tablet 20 mg PO BID 11/11/22 11/30/22 Previous Rx's Medication Instructions Recorded hydromorphone 8 mg tablet 8 mg PO TID PRN pain #40 tabs 01/06/23 (Dilaudid) hydroxyzine HCl 25 mg tablet 12.5 - 25 mg (0.5 - 1 x 25 mg) PO 01/06/23 TID PRN Pain booster #30 tabs Allergies Allergy/AdvReac Type Severity Reaction Status Date / Time meclizine Allergy Unknown Verified 11/30/22 18:07 morphine Allergy Unknown Verified 11/30/22 18:07 [facility] Medical History Cerumen impaction ?H61.20 - Impacted cerumen, unspecified ear (ICD-10) Social History Smoking Status: Never smoker Do you use any of these nicotine containing products: None How often do you have a drink containing alcohol: never AUDIT-C Alcohol total score: 0 Non-prescribed substance use: denies use Exam Const: Vital Signs, click to edit/add: Vital Signs - 24 hr 01/05/23 22:26 01/05/23 23:30 01/05/23 23:46 Temperature 97.7 F Pulse Rate 77 Pulse Rate [Right Pulse Oximeter] 73 77 Respiratory Rate 18 18 16 Blood Pressure 151/83 H Blood Pressure [Ri ght Upper Arm] 142/81 H 148/81 H Pulse Oximetry 95 95 94 Oxygen Delivery Me thod Room Air Room Air 01/05/23 23:48 01/06/23 00:01 01/06/23 00:01 Temperature Pulse Rate 74 75 75 Pulse Rate [Right Pulse Oximeter] Respiratory Rate 16 16 16 Blood Pressure 144/83 H 152/86 H 152/86 H Blood Pressure [Ri ght Upper Arm] Pulse Oximetry 95 93 93 Oxygen Delivery Me thod 01/06/23 00:01 01/06/23 00:01 01/06/23 00:17 Temperature Pulse Rate 75 75 73 Pulse Rate [Right Pulse Oximeter] Respiratory Rate 16 18 18 Blood Pressure 152/86 H 152/86 H 154/81 H Blood Pressure [Ri ght Upper Arm] Pulse Oximetry 93 93 97 Oxygen Delivery Me thod 01/06/23 00:31 01/06/23 00:46 01/06/23 01:01 Temperature Pulse Rate 71 72 69 Pulse Rate [Right Pulse Oximeter] Respiratory Rate 16 16 16 Blood Pressure 154/81 H 153/81 H 147/80 H Blood Pressure [Ri ght Upper Arm] Pulse Oximetry 94 94 95 Oxygen Delivery Me thod 01/06/23 01:22 01/06/23 01:32 01/06/23 01:47 Temperature Pulse Rate 68 74 74 Pulse Rate [Right Pulse Oximeter] Respiratory Rate 16 16 16 Blood Pressure 159/91 H 156/84 H 155/80 H Blood Pressure [Ri ght Upper Arm] Pulse Oximetry 96 95 96 Oxygen Delivery Me thod 01/06/23 02:02 01/06/23 02:17 01/06/23 02:32 Temperature Pulse Rate 70 78 77 Pulse Rate [Right Pulse Oximeter] Respiratory Rate 16 16 18 Blood Pressure 126/65 144/70 H 151/74 H Blood Pressure [Ri ght Upper Arm] Pulse Oximetry 95 96 94 Oxygen Delivery Me thod Documenting provider has reviewed patient's vital signs: yes Other: Answers questions but certainly defers to family and seems to be less insightful than they are. Fully alert, no signs of obvious intoxication or agitation. HENMT: Common normals: normocephalic and head/scalp atraumatic Head and scalp: normocephalic and atraumatic Face and sinus: normal facial exam Mouth: oral and palatal mucosa normal Throat: posterior oropharynx normal Eye: Common normals: conjunctivae normal General eye: normal appearance of both eyes Conjunctiva: conjunctiva(e) normal Neck & C-Spine: Common normals: no lymphadenopathy Resp: Common normals: normal respiratory effort Other: Lung sounds are markedly decreased at the bases, honestly about senior care up the back part of the lungs despite good respiratory effort and upright position. Dullness to percussion noted. Faint crackles. Cardio: Common normals: regular rate, regular rhythm, S1 normal heart sound, S2 normal heart sound and no murmurs Rate: regular rate Rhythm: regular rhythm Heart sounds: S1 normal and S2 normal GI: Other: Surgical scarring consistent with known history of liver transplant. Firm nodularity consistent with mass along right upper quadrant area, family reports that this is the area of known cancer recurrence. Bowel sounds do not sound obstructive. Tender to palpation, right upper quadrant which he states is chronic and stable Back & Pelvis: Common normals: thoracic and lumbar spine normal to inspection Extremity: Other: Trace edema bilaterally to mid tibia. No obvious effusions or deformities to joints Neuro: Other: Slightly slowed mentation but answers questions appropriately. Insight seems moderate. Psych: Appearance: grossly normal Attitude: engaged Other: Cooperative. Skin: Narrative: Slightly jaundiced, sallow complexion but no obvious signs of bruising, lacerations or skin injury. Course Course Hospital Course: Differential diagnosis including CHF, metastatic disease into the lungs and pleural space, cardiac disease, infection, electrolyte abnormality, dehydration, delirium secondary to narcotic medications, among multiple others including multiple considerations for intra-abdominal or intrathoracic considerations. Will start with extensive lab work, EKG. 1 mg of IV Dilaudid while we await findings. I am hesitant order CT scan of the chest until I have an accurate creatinine. I am certain that he is anemic as that is an ongoing problem. I suspect etiology to be related to the fluid I can hear in his lungs today but I am uncertain of the etiology. Awaiting findings. Discussed with family that it will take several hours to answer these questions as I cannot move forward through the steps until the previous is completed due to suspicion for impairment of other organs. They do verbalize understanding and agreement of this Reevaluation(s) Time of Reevaluation #1: 02:40 Reevaluation #1: Laboratory findings discussed with patient and family. He is feeling quite a bit better after the Dilaudid and would like to go home. I do have some significant concerns about his overall prognosis with the weakness, cancer progression and shortness of breath. He says that he is feeling at his baseline. I discussed that I would like to try to get his records and consider doing a CT scan of the chest abdomen and pelvis. But have concerns regarding his creatinine. I would need to use IV contrast. This could be more damaging to his kidneys any already has a scheduled scan with contrast for Saturday which is less than a week from now. This could potentially be catastrophic for his kidneys. I discussed this with the family. Together, we talk about long-term and short-term goals. They were satisfied to know that there are no overwhelming signs of infection, no signs of a heart attack today, no pneumonia, electrolyte abnormality or other significant finding. They would prefer to go home with the limited workup rather than have knee attempt to track down outside records, comparison scans and perform scans here which could potentially be more damaging to his kidneys and knowing that his care team would not be able to see or review those images as well. We had a lengthy discussion regarding his pain medication regimen. I do think that this contributes to his overall weakness but his pain is very bothersome. We discussed a trial of a pain and adjunct like Vistaril to see if this would be helpful. He is currently using 30 mg of Dilaudid daily. Family is waking in the middle of the night to give him pain medication. I discussed a trial of switching to the 8 mg tablets and dosing these 3 times daily. They are interested in trying this. I have sent a prescription to their local pharmacy and they will follow up with her oncologist at her scheduled appointment next week to discuss how it went. They can also start Vistaril 12.5-25 mg 2-3 times daily as a pain at junk to see if they find this helpful as well. If they do, they are oncology team can continue to prescribe it. Side effects discussed, okay to discontinue if it is not helping. I discussed his overall stamina, it sounds as though he was outside earlier today and probably over did it. He will be weaker in the evening and maybe even potentially tomorrow as result of that over activity. This unfortunately will continue to worsen in time. He does have access to a walker an excellent family support. Overall, family is content with the plan for today and will follow-up with her oncology team further long- term management. I think this is certainly reasonable. Vital Signs Vital signs: Initial Vital Signs Temperature 97.7 F 01/05/23 22:26 Temperature Source Temporal Artery Scan 01/05/23 22:26 Pulse Rate 73 01/05/23 22:26 Pulse Rhythm Regular 01/05/23 22:26 Respiratory Rate 18 01/05/23 22:26 Blood Pressure 142/81 H 01/05/23 22:26 Blood Pressure Mean 101 01/05/23 22:26 Blood Pressure Position Sitting 01/05/23 22:26 Pulse Oximetry 95 01/05/23 22:26 Oxygen Delivery Method Room Air 01/05/23 22:26 Vital Signs Temperature 97.7 F 01/05/23 22:26 Pulse Rate 73 01/05/23 22:26 Respiratory Rate 18 01/05/23 22:26 Blood Pressure 142/81 H 01/05/23 22:26 Pulse Oximetry 95 01/05/23 22:26 Oxygen Delivery Method Room Air 01/05/23 22:26 Temperature 97.7 F 01/05/23 22:26 Pulse Rate 77 01/06/23 02:32 Respiratory Rate 18 01/06/23 02:32 Blood Pressure 151/74 H 01/06/23 02:32 Pulse Oximetry 94 01/06/23 02:32 Oxygen Delivery Method Room Air 01/05/23 23:30 Medical Decision Making Lab Data Lab results reviewed: Yes I reviewed the patient's lab results Lab results narrative: Low hemoglobin the family reports that this is improved from 6.8 earlier in the week, before his transfusion. They believe his kidney function is probably stable for him. They are not able to pull up his labs which are apparently in the [employer] system. I do not have access to those. Labs: Lab Results 09/03/23 09/03/23 Range/Units 00:15 00:29 WBC 6.52 (4.50-11.00) K/uL RBC 3.14 L (4.30-5.90) m/uL Hgb 7.5 L* (13.5-17.5) gm/dL Hct 25.3 L (37.0-53.0) % MCV 81 (80-100) fL MCH 24 L (26-34) pg MCHC 30 L (32-36) gm/dL RDW Coeff of Brissa 16.0 H (11.5-15.5) % Plt Count 289 (140-440) K/uL Neut % (Auto) 81.1 H (42.0-72.0) % Lymph % (Auto) 11.5 L (20-44) % [place] % (Auto) 6.1 (0.0-11.0) % Eos % (Auto) 0.5 (0.0-7.0) % Baso % (Auto) 0.5 (0.0-3.0) % Neut # (Auto) 5.30 (1.7-7.0) K/uL Lymph # (Auto) 0.70 L (0.90-2.90) K/uL [place] # (Auto) 0.40 (0.00-0.90) K/UL Eos # (Auto) 0.03 (0.00-0.50) K/uL Baso # (Auto) 0.03 (0.00-0.30) K/uL Abs Immat Gran (auto) 0.02 (0.00-0.30) K/uL Imm/Tot Granulo (auto) 0.3 % D-Dimer Quant (PE/DVT) 3.82 H (0.00-0.50) ug/ml Sodium 138 (135-149) mmol/L Potassium 4.6 (3.6-5.1) mmol/L Chloride 107 (96-114) mmol/L Carbon Dioxide 21 (20-32) mmol/L Anion Gap 10 (7-15) mEq/L BUN 23 (7-30) mg/dL Creatinine 1.7 H (0.5-1.5) mg/dL Estimated Creat Clear 39.42 Estimated GFR 44 ml/min Glucose 143 H (60-115) mg/dL Lactate 0.6 (0.5-1.9) mmol/L Calcium 8.7 (8.4-10.6) mg/dL Total Bilirubin 0.5 (0.1-1.5) mg/dL AST 80 H (12-35) U/L ALT 28 (4-50) U/L Alkaline Phosphatase 154 H (40-150) U/L Ammonia < 9.0 L (13.1-30.0) umol/L Troponin I < 0.01 L (0.01-0.04) ng/mL C-Reactive Protein 7.0 H (0.5-1.0) mg/dL NT-Pro-B Natriuret Pep 2100 pg/mL Total Protein 6.8 (6.0-8.3) g/dL Albumin 3.3 (3.3-5.0) g/dL Procalcitonin 0.75 H (<0.50) ng/mL POC Troponin I 0.02 (0.01-0.04) ng/ml ECG Data Attestation: I personally reviewed and interpreted this ECG as follows: Prior ECG tracings: available for review (Comparison 11/11/2022) Interpretation: Normal sinus rhythm, unchanged from 11/11/2022. Normal axis. No significant ST or T-wave abnormalities. Minimal septal changes are unchanged and are not thought to be indicative of acute ischemia Discharge Plan Discharge Clinical Impression: Weakness Patient Disposition: Home w/ Parent or Adult Condition: Stable Instructions: Weakness (ED) Additional Instructions: As we discussed, there are no signs of heart, pneumonia, infection, electrolyte complications today. I certainly do have ongoing concerns about your overall condition and potential complications from your cancer and or cancer treatment. I suspect that today's episode is a cook consequence of your low hemoglobin, overall deconditioning and poor stamina combined with side effects from the pain medication. I have a few thoughts. As we discussed, your hemoglobin is 7.5 which is exactly where I would expect after your trip transfusion this week. This is overall reassuring. I would love for you to be 9 or greater but additional transfusions have risks of interactions and I do not recommend this for you right now. Your oncologist will continue to address this and look at means to help manage this mcfp. I would love to do a CT scan of the chest abdomen and pelvis to check in on things but I do not have access to your comparison scans through [facility]. This makes comparison is difficult and unfortunately risks kidney injury with the contrast dye that I would use. Since you already have a scan scheduled in less than a week, I do not Wanna risk compromising that test with kidney injury. Together, we agreed that performing additional testing since things are looking pretty good are likely to be more harmful than helpful. I would like to try to simplify your pain medication regimen for you. Let us try transitioning onto the 8 mg tablets of Dilaudid since your consistently taking 4 mg every 4 hours plus additional boosters as needed. I have sent a sup ply of 40 tablets which is the amount you would need to get until your next oncology appointment. Take 8 mg 3 times daily. I have also recommended a trial of hydroxyzine which is a pain medication booster that is technically an antihistamine but really benefits some people tremendously. We have given you a dose here in the emergency department, let us see how this goes. Would recommend starting with a half of a tablet twice daily and increasing up to 1 tablet 3 times daily if you find it helpful. If it causes more weakness or unsteadiness, it is okay to stop the hydroxyzine. If you find the 8 mg tablets of the Dilaudid easier on you or your family, please talk to your oncologist about transitioning on to this dose. In the meantime, if you start running high fevers, have significant bleeding and or altered mental status, please come back to the emergency department. Activity Level: Activity as Tolerated Discharge Diet: Regular Prescriptions: New hydroxyzine HCl 25 mg tablet 12.5 - 25 mg PO TID PRN (Reason: Pain booster) Qty: 30 0RF Rx Instructions: Begin with twice daily with Dilaudid, may increase to 3 times daily if it is found to be beneficial. Okay to try half tablets if this helps with sedation hydromorphone [Dilaudid] 8 mg tablet 8 mg PO TID PRN (Reason: pain) Qty: 40 0RF No Action losartan 50 mg tablet PO methocarbamol 500 mg tablet 250 mg PO QID PRN (Reason: muscle spasm) torsemide 10 mg tablet 20 mg PO BID hydromorphone 2 mg tablet 2 - 4 mg PO Q4H PRN (Reason: severe pain) magnesium oxide 400 mg (241.3 mg magnesium) tablet 400 mg PO DAILY amlodipine 10 mg tablet 10 mg PO DAILY pantoprazole 40 mg tablet,delayed release (DR/EC) 40 mg PO QAM cyclosporine modified 100 mg capsule 100 mg PO Q12H ondansetron 4 mg tablet,disintegrating 4 mg PO Q8H PRN (Reason: nausea/vomiting) insulin aspart U-100 [Novolog FlexPen U-100 Insulin] 100 unit/mL (3 mL) insulin pen subcut 3XD metoprolol tartrate 25 mg tablet 25 mg PO BID sorafenib 200 mg tablet 400 mg PO BID Eliquis 5 mg tablet 5 mg PO BID Tab-A-Hawa Multivitamin w-iron 15 mg iron- 400 mcg tablet 1 tab PO DAILY Follow Up/Referrals: Ferny Hensley MD [Primary Care Provider] - Stand Alone [facility] Info Instructions
[2023-01-06 00:32] LABS: Lactate* 0.6 mmol/L (0.5-1.9)
[2023-01-06 00:39] LABS: Troponin, Point-of-Care* 0.02 ng/ml (0.01-0.04)
[2023-01-06 00:40] LABS: Basophils Absolute Auto 0.03 K/uL (0.00-0.30); Basophils Percent Auto 0.5 % (0.0-3.0); Eosinophils Absolute Auto 0.03 K/uL (0.00-0.50); Eosinophils Percent Auto 0.5 % (0.0-7.0); Hematocrit 25.3 % (37.0-53.0); Immature Granulocytes Abs Auto 0.02 K/uL (0.00-0.30); Immature Granulocytes Pct Auto 0.3 %; Lymphocytes Percent Auto 11.5 % (20-44); Mean Corpuscular HGB Conc 30 gm/dL (32-36); Mean Corpuscular Hemoglobin 24 pg (26-34); Mean Corpuscular Volume 81 fL (80-100); Monocytes Percent Auto 6.1 % (0.0-11.0); Neutrophils Percent Auto 81.1 % (42.0-72.0); Platelet Count* 289 K/uL (140-440); Red Blood Count 3.14 m/uL (4.30-5.90); White Blood Count* 6.52 K/uL (4.50-11.00)
[2023-01-06 00:41] LABS: Slide Review Reflex No
[2023-01-06 00:42] LABS: Hemoglobin* 7.5 gm/dL (13.5-17.5)
[2023-01-06 01:00] LABS: D Dimer Quantitative* 3.82 ug/ml (0.00-0.50)
[2023-01-06 01:36] LABS: Albumin* 3.3 g/dL (3.3-5.0); Chloride* 107 mmol/L (96-114)
[2023-01-06 01:37] LABS: Potassium* 4.6 mmol/L (3.6-5.1); Sodium* 138 mmol/L (135-149)
[2023-01-06 01:39] LABS: Bilirubin Total* 0.5 mg/dL (0.1-1.5); Creatinine* 1.7 mg/dL (0.5-1.5); Est. Creatinine Clearance* 39.42; Estimated Glomerular Filt Rate 44 ml/min
[2023-01-06 01:40] LABS: Alanine Aminotransferase* 28 U/L (4-50); Alkaline Phosphatase* 154 U/L (40-150); Anion Gap 10 mEq/L (7-15); Aspartate Amino Transferase* 80 U/L (12-35); Blood Urea Nitrogen* 23 mg/dL (7-30); Calcium* 8.7 mg/dL (8.4-10.6); Carbon Dioxide* 21 mmol/L (20-32); Glucose* 143 mg/dL (60-115); Total Protein* 6.8 g/dL (6.0-8.3)
[2023-01-06 01:41] LABS: Ammonia* < 9.0 umol/L (13.1-30.0)
[2023-01-06 01:51] LABS: NT Pro B Type NatriureticPept* 2100 pg/mL
[2023-01-06 01:52] LABS: Troponin I* < 0.01 ng/mL (0.01-0.04)
[2023-01-06 01:56] LABS: Procalcitonin* 0.75 ng/mL (<0.50)
[2023-01-06] MEDS: HYDROmorphone 0.5 mg/0.5 ml inj 1 MG IVP (02:36)
[2023-01-06] MEDS: hydrOXYzine pamoate 25 MG CAPSULE PO (02:37)
== END 2023-01-06 02:57 | disposition home or self-care (01) ==
PROVIDERS: Emergency Provider Family Medicine; PCP Family Medicine
DX: R53.1 Weakness (principal)
CPT/HCPCS: 36415; 71046; 80053; 81003; 82140; 83605; 83880; 84145; 84484; 85025; 85379; 86140; 93005; 96374; 99284; 99285; A9270; J1170

== ENCOUNTER 2023-01-23 18:34 | Inpatient (IN) | payer MEDICARE, BC, SELFPAY ==
[2023-01-23] VITALS (17 sets, daily range): BP systolic 119–147; BP diastolic 73–79; PULSE 84–105; RESP 14–18; TEMP 36.8; O2SAT 91–96
--- NOTE | 2023-01-23 19:39 | ED_ITS ---
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 scheduled for colonoscopy tomorrow at [facility]. off chemo off [place]. today blood transfusion and yesterday had fluids. griselda family reports confusion and weakness 67-year-old man presenting to the emergency department with family concern of we akness and confusion. No fever measured. Underlying history of metastatic liver cancer. Has been discontinued from Eliquis in anticipation of a colonoscopy tomorrow at [facility]. this is being done for a GI bleed. Has been anemic and received a blood transfusion earlier today. I believe I saw record indicating hemoglobin of 6.3 yesterday prior to this transfusion. Sometime after receiving transfusion family noted increased confusion. This has persisted over the day. They have been prepping for this colonoscopy. Dietary changes a couple days ago and with cleanout starting yesterday and continuing today. Has been having diarrhea. Did have fluids they said along with his transfusion today and I believe received some yesterday. No labs were drawn today they say. No coughing. No new shortness of breath. New complaint after arrival here in the ER of upper left abdominal pain. Reportedly this is not a typical complaint. Review of records shows was seen here in this emergency department with right upper quadrant pain approximately 2 weeks ago. Family notes that it has been extremely difficult to get him to take the colonoscopy prep; frankly to eat or drink anything. Related Data Home Medications Medication Instructions Recorded Confirmed amlodipine 10 mg tablet 10 mg PO DAILY 11/11/22 11/30/22 apixaban 5 mg tablet (Eliquis) 5 mg PO BID 11/11/22 11/30/22 cyclosporine modified 100 mg 100 mg PO Q12H 11/11/22 11/30/22 capsule hydromorphone 2 mg tablet 2 - 4 mg PO Q4H PRN severe pain 11/11/22 11/30/22 insulin aspart U-100 100 unit/mL subcut 3XD 11/11/22 11/30/22 (3 mL) subcutaneous pen (Novolog FlexPen U-100 Insulin aspart) losartan 50 mg tablet mg PO 11/11/22 11/30/22 magnesium oxide 400 mg (241.3 mg 400 mg PO DAILY 11/11/22 11/30/22 magnesium) tablet methocarbamol 500 mg tablet 250 mg PO QID PRN muscle spasm 11/11/22 11/30/22 metoprolol tartrate 25 mg tablet 25 mg PO BID 11/11/22 11/30/22 multivitamin-iron sulfate 15 1 tab PO DAILY 11/11/22 11/30/22 mg-folic acid 400 mcg tablet (Tab-A-Hawa Multivitamin w-iron) ondansetron 4 mg disintegrating 4 mg PO Q8H PRN nausea/vomiting 11/11/22 11/30/22 tablet pantoprazole 40 mg tablet,delayed 40 mg PO QAM 11/11/22 11/30/22 release sorafenib 200 mg tablet 400 mg PO BID 11/11/22 11/30/22 torsemide 10 mg tablet 20 mg PO BID 11/11/22 11/30/22 Previous Rx's Medication Instructions Recorded hydromorphone 8 mg tablet 8 mg PO TID PRN pain #40 tabs 01/06/23 (Dilaudid) hydroxyzine HCl 25 mg tablet 12.5 - 25 mg (0.5 - 1 x 25 mg) PO 01/06/23 TID PRN Pain booster #30 tabs Allergies Allergy/AdvReac Type Severity Reaction Status Date / Time meclizine Allergy Unknown Verified 11/30/22 18:07 morphine Allergy Unknown Verified 11/30/22 18:07 Review of Systems Status of ROS: Reports: 6 or more systems reviewed and unremarkable except as noted in History and below [facility] Medical History Cerumen impaction ?H61.20 - Impacted cerumen, unspecified ear (ICD-10) Social History Smoking Status: Never smoker Do you use any of these nicotine containing products: None How often do you have a drink containing alcohol: never AUDIT-C Alcohol total score: 0 Non-prescribed substance use: denies use Exam Narrative: Exam Narrative: Is generally fatigued appearing. Breathing easily. Lungs appear to be clear but with poor respiratory effort or coordination. He needed assistance to sit and became confused twisting around it appeared while I was trying to auscultate. Heart in a regular rate and rhythm is distant. Abdomen is soft. Well-healed surgical scars. There is a racquetball sized swelling just left of upper midline where he indicates general pain. Abdomen otherwise is soft with normoactive bowel sounds. Lower extremities are with 1+ pitting edema. He is well-perfused generally. Oropharynx is moist. There is no scleral icterus nor jaundice. Const: Vital Signs, click to edit/add: Vital Signs - 24 hr 01/23/23 18:44 01/23/23 21:48 01/23/23 21:49 Temperature 98.3 F Pulse Rate 91 100 Pulse Rate [Right Pulse Oximeter] 87 Respiratory Rate 18 14 Blood Pressure 119/74 Blood Pressure [13 7/75] 137/75 Pulse Oximetry 96 91 94 [facility] 01/23/23 22:00 01/23/23 22:02 01/23/23 22:15 Temperature Pulse Rate 84 96 Pulse Rate [Right Pulse Oximeter] Respiratory Rate Blood Pressure 129/73 Blood Pressure [13 7/75] Pulse Oximetry 94 95 95 [facility] 01/23/23 22:30 01/23/23 22:32 01/23/23 22:38 Temperature Pulse Rate 98 105 H Pulse Rate [Right Pulse Oximeter] Respiratory Rate Blood Pressure 136/77 Blood Pressure [13 7/75] Pulse Oximetry 95 95 94 [facility] 01/23/23 22:54 01/23/23 23:00 01/23/23 23:02 Temperature Pulse Rate 96 96 95 Pulse Rate [Right Pulse Oximeter] Respiratory Rate Blood Pressure 139/78 Blood Pressure [13 7/75] Pulse Oximetry 96 94 94 [facility] 01/23/23 23:03 01/23/23 23:15 01/23/23 23:30 Temperature Pulse Rate 97 96 101 H Pulse Rate [Right Pulse Oximeter] Respiratory Rate Blood Pressure Blood Pressure [13 7/75] Pulse Oximetry 94 96 94 [facility] 01/23/23 23:32 01/23/23 23:45 01/24/23 00:00 Temperature Pulse Rate 98 98 96 Pulse Rate [Right Pulse Oximeter] Respiratory Rate Blood Pressure 147/79 H Blood Pressure [13 7/75] Pulse Oximetry 95 95 98 [facility] 01/24/23 00:02 01/24/23 00:02 01/24/23 00:02 Temperature Pulse Rate 93 93 93 Pulse Rate [Right Pulse Oximeter] Respiratory Rate Blood Pressure 140/77 H 140/77 H 140/77 H Blood Pressure [13 7/75] Pulse Oximetry 97 97 97 Oxygen Delivery Sc thod Documenting provider has reviewed patient's vital signs: yes Course Vital Signs Vital signs: Initial Vital Signs Temperature 98.3 F 01/23/23 18:44 Temperature Source Temporal Artery Scan 01/23/23 18:44 Pulse Rate 87 01/23/23 18:44 Respiratory Rate 18 01/23/23 18:44 Blood Pressure 137/75 01/23/23 18:44 Blood Pressure Mean 95 01/23/23 18:44 Blood Pressure Position Sitting 01/23/23 18:44 Pulse Oximetry 96 01/23/23 18:44 Oxygen Delivery Method Room Air 01/23/23 18:44 Vital Signs Temperature 98.3 F 01/23/23 18:44 Pulse Rate 87 01/23/23 18:44 Respiratory Rate 18 01/23/23 18:44 Blood Pressure 137/75 01/23/23 18:44 Pulse Oximetry 96 01/23/23 18:44 Oxygen Delivery Method Room Air 01/23/23 18:44 Temperature 98.3 F 01/23/23 18:44 Pulse Rate 93 01/24/23 00:02 Respiratory Rate 14 01/23/23 21:48 Blood Pressure 140/77 H 01/24/23 00:02 Pulse Oximetry 97 01/24/23 00:02 Oxygen Delivery Method Room Air 01/23/23 18:44 Medical Decision Making MDM Narrative Medical decision making narrative: This does not seem to be a transfusion reaction as questioned. Weakness possibly from colon prep and dehydration, electrolyte abnormalities or infectious etiology. Will draw blood cultures. Pending results of labs will give IV fluids accordingly. Pain medications could certainly be contributing to confusion. Is taking hydromorphone. This abdominal pain may correlate simply with this abdominal wall tumor. He has not been vomiting nor with complaint of nausea suggesting obstruction. Is probably also due for pain medication. Pancreatitis? Initiated on IV fluid hydration. Switch to D5 normal saline for caloric intake concerns expressed by family and nursing. Requesting pain medication. Was given hydromorphone IV. Chest x-ray reviewed by me without clear infiltrate though radiology question of atelectasis versus evolving pneumonia in the right lower lung field comparing to prior imaging. Given initial inspiratory efforts and lack of respiratory symptoms, I would favor atelectasis. Creatinine and transaminases are similar to prior. Ammonia level was not collec amalia. Finally obtain urinalysis which does not appear to show infection. Following IV fluid bolus seems to have more energy. Still demonstrating moment of confusion in seems to drift off quickly. I was discussing potential discharge home versus admission; consensus reached by patient and family that he is simply too weak to manage there at this time. I discussed this case with hospitalist anticipating admission. Lab Data Lab results reviewed: Yes I reviewed the patient's lab results Labs: Lab Results 01/23/23 01/23/23 01/24/23 Range/Units 21:06 21:10 00:08 WBC 4.69 (4.50-11.00) K/uL RBC 3.25 L (4.30-5.90) m/uL Hgb 8.0 L (13.5-17.5) gm/dL Hct 25.3 L (37.0-53.0) % MCV 78 L (80-100) fL MCH 25 L (26-34) pg MCHC 32 (32-36) gm/dL RDW Coeff of Brissa 17.1 H (11.5-15.5) % Plt Count 285 (140-440) K/uL Neut % (Auto) 72.6 H (42.0-72.0) % Lymph % (Auto) 16.8 L (20-44) % Meagher % (Auto) 9.2 (0.0-11.0) % Eos % (Auto) 0.6 (0.0-7.0) % Baso % (Auto) 0.4 (0.0-3.0) % Neut # (Auto) 3.40 (1.7-7.0) K/uL Lymph # (Auto) 0.80 L (0.90-2.90) K/uL Meagher # (Auto) 0.40 (0.00-0.90) K/UL Eos # (Auto) 0.03 (0.00-0.50) K/uL Baso # (Auto) 0.02 (0.00-0.30) K/uL Abs Immat Gran (auto) 0.02 (0.00-0.30) K/uL Imm/Tot Granulo (auto) 0.4 % Sodium 135 (135-149) mmol/L Potassium 3.9 (3.6-5.1) mmol/L Chloride 101 (96-114) mmol/L Carbon Dioxide 26 (20-32) mmol/L Anion Gap 8 (7-15) mEq/L BUN 29 (7-30) mg/dL Creatinine 2.0 H (0.5-1.5) mg/dL Estimated GFR 36 ml/min Glucose 118 H (60-115) mg/dL Lactate 1.0 (0.5-1.9) mmol/L Calcium 9.1 (8.4-10.6) mg/dL Total Bilirubin 0.8 (0.1-1.5) mg/dL Direct Bilirubin 0.2 (0.0-0.5) mg/dL AST 51 H (12-35) U/L ALT 22 (4-50) U/L Alkaline Phosphatase 176 H (40-150) U/L C-Reactive Protein 5.3 H (0.5-1.0) mg/dL Total Protein 6.9 (6.0-8.3) g/dL Albumin 3.4 (3.3-5.0) g/dL Lipase 164 (23-300) U/L Urine Color Yellow (Yellow) Urine Appearance Clear (Clear) Urine pH 6.0 (5.0-8.5) Ur Specific Henderson 1.015 (1.000-1.030) Urine Protein 2+ A (Negative) Urine Glucose (UA) Negative (Negative) Urine Ketones Negative (Negative) Urine Blood Trace-intact A (Negative) Urine Nitrite Negative (Negative) Urine Bilirubin Negative (Negative) Urine Urobilinogen 0.2 (0.2-1.0) Ur Leukocyte Esterase Negative (Negative) Urine RBC 0-2 (0-2) Urine WBC 0-2 (0-5) Ur Squamous Epith Cells Few (None-Few) Urine Bacteria Few A (None) SARS-CoV-2 (PCR) Negative SARS-CoV-2 (Negative) Discharge Plan Discharge Clinical Impression: Weakness, Dehydration, Confusion Patient Disposition: Admitted As Observation Condition: Improved
--- OUTSIDE RECORDS SUMMARY | 2023-01-23 20:31 | XMS_ITS | Continuity of Care Document ---
Author Name Unknown Organization [facility] Address [address] [address] [place] [address] Phone Care Team Providers Care Fish Processor Name Role Phone Neptali Perera MD Unavailable Unavailable Allergies, Adverse Reactions, Alerts Substance Reaction Status Criticality meclizine Active No Information morphine Active No Information Medications Medication Instructions Dosage Effective Dates (start - stop) Status Comments furosemide 20 mg tablet take 1 Tablet by oral route every day 20 MG - Active bumetanide 2 mg tablet take 1 tablet by oral route every day 2 MG - Active spironolactone 50 mg tablet take 1 tablet by oral route every day 50 MG - Active amlodipine 10 mg tablet take 1 tablet by oral route every day 10 MG - Active atenolol 100 mg tablet take 1 tablet by oral route every day 100 MG - Active lisinopril 20 mg-hydrochlorothiazide 25 mg tablet take 1 tablet by oral route every day 1.00 tablet - Active omeprazole 40 mg capsule,delayed release take 1 capsule by ORAL route every day for 30 minutes before breakfast and supper 40 MG - Active Tresiba FlexTouch U-100 insulin 100 unit/mL (3 mL) subcutaneous pen inject by subcutaneous route as per insulin protocol 0.00 - Active Procedures Procedure Date Offic/outpt E&m Estab Low-mod 9 cancelled appt Ugi Endo; W/band Lig Varices Moderate Sedation, Initial 15 minutes Ju Ugi Endo; W/band Lig Varices Colonoscopy Flex; Dx (sep Pro) 18 Advance Directives Directive Yes / No Effective Date File Name No Information Encounters Encounter Description Practice Location Reason(s) For Visit Diagnoses Date Provider Providers Copied on Encounter [facility], [address] [address], [place], [id number], [place] tel:[phone] [facility] No Information 3 Dilma Gunderson. [address] [facility], [address], [id number], [place]. [phone] Offic/outpt E&m Estab Low-mod [facility], [address] [address], [place], [id number], [place] tel:[phone] [facility] Comment (chief complaint) Esophageal varices without bleeding, unspecified esophageal varices type 9 Sharon Rose. [address] [facility], [address], [id number], [place]. [phone] Referring Provider: Referral Self. [facility], [address] [address], [place], [id number], [place] tel:[phone] [facility] Esophageal varices without bleeding, unspecified esophageal varices type 9 Dion Oh. [address] [facility], [address], [id number], [place]. tel:[phone] [facility], [address] [address], [place], [address], [place] tel:[phone] [facility] No Information 9 Rubens Mariano. [address] [facility], [address], [id number], [place]. tel:[phone] Referring Provider: Referral Self. [facility], [address] [address], [place], [place], [id number], [place] tel:[phone] [facility] No Information 9 Dion Oh. [address] [place] [address], [facility] [address], [place], [place], [id number], [place]. tel:[phone] Referring Provider: Adriano Ashley MD, [address] [facility] [address], [place], [address] . tel:[phone] [facility], [address] [address], [place], [id number], [place] tel:[phone] [facility] Esophageal varices without bleeding, unspecified esophageal varices type 9 Buffy Barney. [address] [place] [address], [facility] [address], [place], [id number], [place]. [phone] [facility], [address] [address], [place], [id number], [place] tel:[phone] [facility] Hepatic cirrhosis, unspecified hepatic cirrhosis type, unspecified whether ascites presentHepatoma Secondary esophageal varices without bleedingH/O adenomatous polyp of colonEncounter for screening for malignant neoplasm of colonSecondary esophageal varices without bleedingUnspeci fied cirrhosis of liverPersonal history of colonic polyps 8 Buffy Barney. [facility], [facility] [address], [place], [place], [id number], [place]. tel:[phone] Referring Provider: Sae Friedman MD R, [address] [place] [address] [address], [place], [address]. tel:[phone] Family History Family Member Type Diagnosis Age At Onset Sister Problem (finding) Brother Problem (finding) asthma Father Problem (finding) asthma Daughter Problem (finding) Alive and well Brother Problem (finding) alcoholism Sister Problem (finding) Alive and well Mother Problem (finding) Immunizations Vaccine Date Status Comments zoster vaccine recombinant administered N ote: [facility] bi-directional interface ; Source: Other Registry SARS-COV-2 (COVID-19) vaccin e, mRNA, spike protein, LNP, preservative free, 30 mcg/0.3mL dose, jose-sucrose formulation administered Note: [facility] C bi- directional interface ; Source: Other Registry SARS-COV-2 (COVID-19) vaccin e, mRNA, spike protein, LNP, preservative free, 30 mcg/0.3mL dose administered Note: [facility] bi-direct ional interface ; Source: Other Registry SARS-COV-2 (COVID-19) vaccin e, mRNA, spike protein, LNP, preservative free, 30 mcg/0.3mL dose administered Note: [facility] bi-direct ional interface ; Source: Other Registry Twinrix administered Note: [facility] bi-d irectional interface ; Source: Other Registry Afluria Qd administered Note: M [facility] bi-directional interface ; Source: Other Registry Havrix administered Note: [facility] bi-d irectional interface ; Source: Other Registry Engerix-B administered Note: [facility] bi-d irectional interface ; Source: Other Registry tetanus toxoid, reduced diphtheria toxoid, and acellular pertussis vaccine, adsorbed administered Note: [facility] b i-directional interface ; Source: Other Registry Influenza, injectable, Madin Chichi Canine Kidney, preservative free, quadrivalent administered Note: [place] [facility] bi- directional interface ; Source: Other Registry Afluria Qd administered Note: [facility] bi-directional interface ; Source: Other Registry Afluria Qd administered Note: M [facility] bi-directional interface ; Source: Other Registry Influenza, seasonal, injecta ble, preservative free administered Note: [facility] bi-direct ional interface ; Source: Other Registry Influenza, seasonal, injectable administe red Note: [facility] bi- directional interface ; Source: Other Registry Pneumovax 23 administered Note: [facility] bi-d irectional interface ; Source: Other Registry Influenza, seasonal, injecta ble, preservative free administered Note: [facility] bi-direct ional interface ; Source: Other Registry Novel [id number], preservative-free, injectable administered Note: [facility] bi-directional interface ; Source: Other Registry Influenza, seasonal, injectable administe red Note: [facility] bi- directional interface ; Source: Other Registry Payers Payer name Insurance type Covered democrat ID Authoriza tion(s) No Information Social History Type Description Quantity Date Captured Comments Sex Male Smoking Status No Information Chief Complaint And Reason For Visit No Information Reason For Referral Reason For Referral No Information Plan Of Treatment Date Type Action Status Referral Ordered: EGD w/Banding Appointment date/timeframe: 04/01/2019 ordered Referral Ordered: EGD Appointment date/timeframe: 06/27/2018 ordered Referral Ordered: Esophagoscopy Appointment date/timeframe: 05/21/2018 ordered Appointment Danielle Harrell BOOKED History Of Present Illness Encounter Date Complaint History Of Prese nt Illness Comment This is a [facility] nt 63-year-old male who is seen today in followup after a recent upper endoscopy through our group, which revealed large esophageal varices.The patient was diagnosed with liver cancer 2 years ago. He follows with Dinora Rios/Dr. Friedman at the [place]. His current MELD is 32 per his report. EGD, 11/13/2018, revealed large (>5mm) esophageal varices, which were banded, and he also had nonbleeding gastric ulcers with no stigmata of bleeding, portal hypertensive gastropathy, and normal duodenum. He was instructed to increase the Prilosec to 40 mg by mouth twice daily and repeat upper endoscopy in 4 weeks for retreatment. The largest gastric lesion was 4 mm in dimension. The patient presents today with a dry, persistent cough that he has had for 2 months. This is not associated with congestion or upper respiratory symptoms. He has been on many different cough drops and cough medications without improvement. There is no shortness of breath or wheezing. He has had a chest x-ray approximately 1 month ago, which was normal. He is currently on bumetanide 2 mg daily for his diuretic. He has not tolerated spironolactone in the past. He has had increased swelling in his abdomen and ankle swelling as of late.He had a 2-day physical in November with comprehensive evaluation including his heart, which was normal per his report.He has undergone radiation treatments for HCC, and is on the transplant list.PAST MEDICAL HISTORYThe patient has a past medical history of diabetes and GERD. He is status post spinal surgery.FAMILY HISTORYThere is no family history of any GI related conditions or malignancies.SOCIAL HISTORYHe is a nonsmoker. There is no current alcohol usage. Functional Status Date Functional Assessmen t No Information Instructions Date Instruction Additional Infor ryan Colon Cancer Prevention Related to H/O adenomatous polyp of colon Assessments Type Assessment Date No Information Patient Care Teams Name Effective Dates (start - stop) Status Members No Information
--- OUTSIDE RECORDS SUMMARY | 2023-01-23 20:31 | XMS_ITS | Continuity of Care Document ---
Author Name Unknown Organization [facility] Address [address] [address] [place] [address] Phone Care Team Providers Care Deli Cutter Slicer Name Role Phone Neptali Perera MD Unavailable [...] Diagnoses Date Provider Providers Copied on Encounter [facility], [address] [address], [place], [id number], [place] tel:[phone] [facility] No Information 3 Dilma Gunderson. [address] [facility] [place], [address], [id number], [place]. [phone] Offic/outpt E&m Estab Low-mod [facility], [address] [address], [place], [place], [id number], [place] tel:[phone] [facility] Comment (chief complaint) Esophageal varices without bleeding, unspecified esophageal varices type 9 Sharon Rose. [address] [facility], [address], [id number], [place]. [phone] Referring Provider: Referral Self. [facility], [address] [address], [place], [id number], [place] tel:[phone] [facility] Esophageal varices without bleeding, unspecified esophageal varices type 9 Dion Oh. [address] [facility], [address], [id number], [place]. tel:[phone] [facility], [address] [address], [place], [id number], [place] tel:[phone] [facility] No Information 9 Rubens Mariano. [address] [facility], [address], [id number], [place]. tel:[phone] Referring Provider: Referral Self. [facility], [address] [address], [place], [place], [id number], [place] tel:[phone] [facility] No Information 9 Dion Oh. [address] [place] [address], [facility] [address], [place], [place], [id number], [place]. tel:[phone] Referring Provider: Adriano Ashley MD, [address] [facility] [address], [place], [address] . tel:[phone] [facility], [address] [address], [place], [id number], [place] tel:[phone] [facility] Esophageal varices without bleeding, unspecified esophageal varices type 9 Buffy Barney. [address] [place] [address], [facility] [address], [place], [id number], [place]. [phone] [facility], [address] [address], [place], [id number], [place] tel:[phone] [facility] Hepatic cirrhosis, unspecified hepatic cirrhosis type, unspecified whether ascites presentHepatoma Secondary esophageal varices without bleedingH/O adenomatous polyp of colonEncounter for screening for malignant neoplasm of colonSecondary esophageal varices without bleedingUnspeci fied cirrhosis of liverPersonal history of colonic polyps 8 Buffy Barney. [facility], [facility] [address], [place], [place], [id number], [place]. tel:[phone] Referring Provider: Sae Friedman MD R, [address] [place] [address] [address], [place], [address]. tel:[phone] Family History Family Member Type Diagnosis Age [...] Canine Kidney, preservative free, quadrivalent administered Note: [place] IC bi- directional interface ; Source: Other [...] ional interface ; Source: Other Registry Novel [id number], preservative-free, injectable administered Note: [facility] bi-directional interface [...] Prese nt Illness Comment This is a [facility] nt 63-year-old male who is seen today in followup after a recent upper endoscopy through our group, which revealed large esophageal varices.The patient was diagnosed with liver cancer 2 years ago. He follows with Dinora Rios/Dr. Friedman at the [facility]. His current MELD is 32 per his [...]
[2023-01-23 21:22] LABS: Basophils Absolute Auto 0.02 K/uL (0.00-0.30); Basophils Percent Auto 0.4 % (0.0-3.0); Eosinophils Absolute Auto 0.03 K/uL (0.00-0.50); Eosinophils Percent Auto 0.6 % (0.0-7.0); Hematocrit 25.3 % (37.0-53.0); Immature Granulocytes Abs Auto 0.02 K/uL (0.00-0.30); Immature Granulocytes Pct Auto 0.4 %; Lymphocytes Percent Auto 16.8 % (20-44); Mean Corpuscular HGB Conc 32 gm/dL (32-36); Mean Corpuscular Hemoglobin 25 pg (26-34); Mean Corpuscular Volume 78 fL (80-100); Monocytes Percent Auto 9.2 % (0.0-11.0); Neutrophils Percent Auto 72.6 % (42.0-72.0); Platelet Count* 285 K/uL (140-440); RDW Coefficient of Variation % 17.1 % (11.5-15.5); Red Blood Count 3.25 m/uL (4.30-5.90); White Blood Count* 4.69 K/uL (4.50-11.00)
[2023-01-23 21:41] LABS: Slide Review Reflex No
[2023-01-23 21:42] LABS: Chloride* 101 mmol/L (96-114); Sodium* 135 mmol/L (135-149)
[2023-01-23 21:43] LABS: Albumin* 3.4 g/dL (3.3-5.0); Potassium* 3.9 mmol/L (3.6-5.1)
[2023-01-23 21:46] LABS: Alanine Aminotransferase* 22 U/L (4-50); Alkaline Phosphatase* 176 U/L (40-150); Anion Gap 8 mEq/L (7-15); Aspartate Amino Transferase* 51 U/L (12-35); Bilirubin Direct* 0.2 mg/dL (0.0-0.5); Bilirubin Total* 0.8 mg/dL (0.1-1.5); Blood Urea Nitrogen* 29 mg/dL (7-30); Calcium* 9.1 mg/dL (8.4-10.6); Carbon Dioxide* 26 mmol/L (20-32); Estimated Glomerular Filt Rate 36 ml/min; Glucose* 118 mg/dL (60-115); Lipase* 164 U/L (23-300); Total Protein* 6.9 g/dL (6.0-8.3)
[2023-01-23 21:49] LABS: C Reactive Protein* 5.3 mg/dL (0.5-1.0)
[2023-01-23] MEDS: HYDROmorphone 0.5 mg/0.5 ml inj IVP ×2 (21:49→23:05)
[2023-01-23 22:15] LABS: SARS PCR* Negative SARS-CoV-2 (Negative)
--- NOTE | 2023-01-23 22:15 | CRLHL7_ITS ---
For Patients: As a result of the Century Cures Act, medical imaging exams and procedure reports are released immediately into your electronic medical record. You may view this report before your referring provider. If you have questions, please contact your health care provider. INDICATION: Weakness. TECHNIQUE: Chest radiographs, 1 view. COMPARISON: Chest radiographs 01/06/2023. FINDINGS: Lines/Tubes/Devices: None. Mediastinum: Normal cardiac silhouette. Lungs: Low lung volumes limit evaluation. No focal consolidation. There may be hazy opacification of the right lower lung zone. Linear bandlike opacifications of the lung bases likely due to subsegmental atelectasis and/or scarring. Pleura: No pleural effusions or pneumothorax. Bones: No acute osseous abnormalities. Soft tissues: Unremarkable. IMPRESSION: Low lung volumes limit evaluation. Ill-defined hazy opacification of the right lower lung zone may represent atelectasis or a developing pneumonia. Dictated by Waldo Ernst MD @ 01/23/2023 11:18:49 PM (Electronically Signed)
[2023-01-23] MEDS: 5 % DEXTROSE/0.9% SOD CHLORIDE 1,000 ML 1000 ML IV (22:36)
[2023-01-24] VITALS (14 sets, daily range): BP systolic 114–170; BP diastolic 68–91; PULSE 71–130; RESP 16–18; TEMP 36.8–37.5; O2SAT 95–99; BMI 25.7
[2023-01-24 00:18] LABS: Appearance Urine Clear (Clear); Bilirubin Urine Negative (Negative); Blood Urine Trace-intact (Negative); Color Urine Yellow (Yellow); Glucose Urine Negative (Negative); Ketones Urine Negative (Negative); Leukocyte Esterase Urine Negative (Negative); Nitrite Urine Negative (Negative); Protein Urine 2+ (Negative); Specific Gravity Urine 1.015 (1.000-1.030); Urobilinogen Urine 0.2 (0.2-1.0)
[2023-01-24 00:25] LABS: Bacteria Urine Few; RBC Urine 0-2 (0-2); Squamous Epithelial Cell Urine Few (None-Few); WBC Urine 0-2 (0-5)
--- NOTE | 2023-01-24 01:30 | PM.IMHP1 ---
Hospitalist- H&P: HPI History of Present Illness Date Seen: 01/28/23 Chief complaint: Received blood tranfusion today-disorientated Narrative: Danielle Harrell is a 67 year old male with a h/o HCC s/p liver transplantation in 2018 with subsequent progression of disease on oral chemo with Sorafenib, IDDM2, PAF (Eliquis currently on hold), GI bleed scheduled for colonoscopy on 01/24, HTN, h/o lung SCLC in 1995 who presents to the ED with weakness, disorientation. The patient received a transfusion today for a chronic GI bleed, hgb was 6.8. Received 1 unit per records thru [facility], now hgb is 8.0. No active bleeding is reports, but patient presents to the ED with some disorientation and weakness, and he is deemed unsafe to go home by staff, so he is admitted. The patient is somewhat somnolent, answers questions but otherwise does not offer information. History is obtained from family who is at bedside. Patient seemed more somnolent and confused after his transfusion today. He was also complaining of shortness of breath, as well as right sided abdominal pain. Family did not notice n/v. ROS is largely negative except for weakness, decreased level of responsiveness, but he was still able to walk. Patient himself denies any symptoms at this time, although he does exhibit confusion, he is oriented only to self. No sick contacts. Review of Systems Status of ROS: Reports: 10 or more systems reviewed and unremarkable except as noted in History and below Narrative: ROS obtained from and daughter [facility] Medical History (Updated 01/28/23 @ 14:52 by Edward Parsons MD) Esophageal varices ?I85.00 - Esophageal varices without bleeding (ICD-10) PAF (paroxysmal atrial fibrillation) ?I48.0 - Paroxysmal atrial fibrillation (ICD-10) Diabetes ?E11.9 - Type 2 diabetes mellitus without complications (ICD-10) GI bleed ?K92.2 - Gastrointestinal hemorrhage, unspecified (ICD-10) HCC (hepatocellular carcinoma) ?C22.0 - Liver cell carcinoma (ICD-10) Hypertension ?I10 - Essential (primary) hypertension (ICD-10) Social History What is your current living situation?: I presently have a place to live Problems where you live: no known problems Problems where you live details: no known problems In the past 12 months, utilities in danger of being shut off: no In past 12 months, lack of transportation kept you from medical appts, meetings, work, or getting things needed for daily living: no In the past 12 mos, have been you worried that your food would run out before you had money to buy more?: never true In the past 12 mos, the food you bought just didn't last and you didn't have money to buy more?: never true Smoking Status: Never smoker Do you use any of these nicotine containing products: None Second hand tobacco smoke exposure: No How often do you have a drink containing alcohol: never AUDIT-C Alcohol total score: 0 Non-prescribed substance use: denies use Caffeine: No How often does anyone, including family, friends and others, physically hurt you: unable to answer How often does anyone, including family, friends and others, insult or talk down to you: unable to answer How often does anyone, including family, friends and others, threaten you with harm: unable to answer How often does anyone, including family, friends and others, scream or curse at you: unable to answer service: No Meds Home Medications and Allergies Home Medications Medication Instructions Recorded Confirmed Type amlodipine 10 mg tablet 10 mg PO DAILY 11/11/22 01/24/23 History cyclosporine modified 100 mg 100 mg PO Q12H 11/11/22 01/24/23 History capsule insulin aspart U-100 100 unit/mL 1 - 5 unit subcut 3XD 11/11/22 01/24/23 History (3 mL) subcutaneous pen (Novolog FlexPen U-100 Insulin aspart) losartan 50 mg tablet 50 mg PO DAILY 11/11/22 01/24/23 History magnesium oxide 400 mg (241.3 mg 400 mg PO DAILY 11/11/22 01/24/23 History magnesium) tablet methocarbamol 500 mg tablet 250 mg PO QID PRN muscle spasm 11/11/22 01/24/23 History metoprolol tartrate 25 mg tablet 25 mg PO BID 11/11/22 01/24/23 History multivitamin-iron sulfate 15 1 tab PO DAILY 11/11/22 01/24/23 History mg-folic acid 400 mcg tablet (Tab-A-Hawa Multivitamin w-iron) ondansetron 4 mg disintegrating 4 mg PO Q8H PRN nausea/vomiting 11/11/22 01/24/23 History tablet pantoprazole 40 mg tablet,delayed 40 mg PO QAM 11/11/22 01/24/23 History release sorafenib 200 mg tablet 400 mg PO BID 11/11/22 01/24/23 History diclofenac sodium 1 % topical gel topical BID 01/24/23 History Allergies Allergy/AdvReac Type Severity Reaction Status Date / Time meclizine Allergy Unknown Verified 11/30/22 18:07 morphine Allergy Unknown Verified 11/30/22 18:07 Exam Narrative: Exam Narrative: GEN: somnolent but awake, able to interact, but confusion apparent, slow to respond HEENT: normocephalic, atraumatic Neck: supple, no masses no JVD CVS: S1 S2 RRR Lung: mild crackles R base, no wheezes Abd: distended, palpable masses R abdomen, tender RUQ Ext: trace edema LEs Skin: pale, no rashes no lesions Neuro: weak, but no focal motor deficits, oriented x 1 Psych: flat affect Const: Vital Signs, click to edit/add: Vital Signs - 24 hr 01/23/23 18:44 01/23/23 21:48 01/23/23 21:49 Temperature 98.3 F Pulse Rate 91 100 Pulse Rate [Right Pulse Oximeter] 87 Respiratory Rate 18 14 Blood Pressure 119/74 Blood Pressure [13 7/75] 137/75 Pulse Oximetry 96 91 94 [facility] 01/23/23 22:00 01/23/23 22:02 01/23/23 22:15 Temperature Pulse Rate 84 96 Pulse Rate [Right Pulse Oximeter] Respiratory Rate Blood Pressure 129/73 Blood Pressure [13 7/75] Pulse Oximetry 94 95 95 [facility] 01/23/23 22:30 01/23/23 22:32 01/23/23 22:38 Temperature Pulse Rate 98 105 H Pulse Rate [Right Pulse Oximeter] Respiratory Rate Blood Pressure 136/77 Blood Pressure [13 7/75] Pulse Oximetry 95 95 94 [facility] 01/23/23 22:54 01/23/23 23:00 01/23/23 23:02 Temperature Pulse Rate 96 96 95 Pulse Rate [Right Pulse Oximeter] Respiratory Rate Blood Pressure 139/78 Blood Pressure [13 7/75] Pulse Oximetry 96 94 94 Oxygen Delivery [facility] 01/23/23 23:03 01/23/23 23:15 01/23/23 23:30 Temperature Pulse Rate 97 96 101 H Pulse Rate [Right Pulse Oximeter] Respiratory Rate Blood Pressure Blood Pressure [13 7/75] Pulse Oximetry 94 96 94 Oxygen Delivery [facility] 01/23/23 23:32 01/23/23 23:45 01/24/23 00:00 Temperature Pulse Rate 98 98 96 Pulse Rate [Right Pulse Oximeter] Respiratory Rate Blood Pressure 147/79 H Blood Pressure [13 7/75] Pulse Oximetry 95 95 98 Oxygen Delivery [facility] 01/24/23 00:02 01/24/23 00:02 01/24/23 00:02 Temperature Pulse Rate 93 93 93 Pulse Rate [Right Pulse Oximeter] Respiratory Rate Blood Pressure 140/77 H 140/77 H 140/77 H Blood Pressure [13 7/75] Pulse Oximetry 97 97 97 Oxygen Delivery [facility] Hospitalist - H&P: Result Labs Labs: Short CBC 01/23/23 Range/Units 21:06 WBC 4.69 (4.50-11.00) K/uL Hgb 8.0 L (13.5-17.5) gm/dL Hct 25.3 L (37.0-53.0) % Plt Count 285 (140-440) K/uL BMP 01/23/23 21:06 Sodium 135 Potassium 3.9 Chloride 101 Carbon Dioxide 26 BUN 29 Creatinine 2.0 H Glucose 118 H Calcium 9.1 Liver Function 01/23/23 Range/Units 21:06 Total Bilirubin 0.8 (0.1-1.5) mg/dL Direct Bilirubin 0.2 (0.0-0.5) mg/dL AST 51 H (12-35) U/L ALT 22 (4-50) U/L Alkaline Phosphatase 176 H (40-150) U/L Albumin 3.4 (3.3-5.0) g/dL Urine 01/24/23 Range/Units 00:08 Urine Color Yellow (Yellow) Urine Appearance Clear (Clear) Urine pH 6.0 (5.0-8.5) Ur Specific [place] 1.015 (1.000-1.030) Urine Protein 2+ A (Negative) Urine Glucose (UA) Negative (Negative) Assessment and Plan Assessment and plan (1) Confusion: Status: Deleted Assessment and Plan: May be because of CAP versus drug effect. Slight possible CVA, will get head CT w/o contrast (2) Weakness: Status: Deleted Assessment and Plan: possible CAP PT/OT consult (3) CAP (community acquired pneumonia): Problem comment: -continue abx as started at admission despite no radiographic evidence of pneumonia, ceftriaxone 1 g IV daily x 5 days completed in hospital with no additional oral antibiotics thereafter. -CT Chest: no pneumonia. small right pleural effusion. -continue to follow cultures clear Status: Acute Assessment and Plan: CXR shows developing infiltrate on right side. No respiratory failure, no hypoxia. No sepsis, so blood cultures unlikely to be helpful empiric ceftriaxone, azithromycin (4) HCC (hepatocellular carcinoma): Problem comment: Known, metastatic, extremely poor prognosis Hospice appropriate Status: Acute Assessment and Plan: Metastatic. Prognosis poor. Patient is on oral Sorafenib (5) GI bleed: Problem comment: Slow drift in his hemoglobin. Transfused 1 unit of packed red blood cells on 01/25. Status: Acute Assessment and Plan: -hgb 8.0. Patient had transfusion of 1 unit at [facility] prior to admission here. He was scheduled for colonoscopy at [facility] in [place]. This unfortunately will have to be postponed. -monitor for bleeding, follow hgb (6) Diabetes: Problem comment: Known. Goal is not for strict/tight control. Status: Acute Assessment and Plan: -Insulin dependent usually, but has not been eating well lately. Family states insulin has not been consistently used -Blood sugar 118 on admit -hold any insulin for now -monitor glucose daily
[2023-01-24] MEDS: SODIUM CHLORIDE 0.9 % (FLUSH) 10 ML SYRINGE 5 ML IVF ×3 (03:25→20:49)
[2023-01-24] MEDS: cefTRIAXone 1 GM in 0.9 % SODIUM CHLORIDE Mini-bag 100 ML IVPB (03:25)
[2023-01-24] MEDS: AZITHROMYCIN 500 MG in 0.9 % SODIUM CHLORIDE 250 ml 250 ML 255 MG IVPB (04:12)
[2023-01-24 06:20] LABS: Basophils Percent Auto 0.5 % (0.0-3.0); Eosinophils Percent Auto 1.2 % (0.0-7.0); Hematocrit 27.2 % (37.0-53.0); Hemoglobin* 8.4 gm/dL (13.5-17.5); Immature Granulocytes Pct Auto 1.9 %; Lymphocytes Percent Auto 14.9 % (20-44); Mean Corpuscular HGB Conc 31 gm/dL (32-36); Mean Corpuscular Hemoglobin 24 pg (26-34); Mean Corpuscular Volume 78 fL (80-100); Monocytes Percent Auto 9.9 % (0.0-11.0); Neutrophils Percent Auto 71.6 % (42.0-72.0); Platelet Count* 277 K/uL (140-440); RDW Coefficient of Variation % 17.1 % (11.5-15.5); Red Blood Count 3.49 m/uL (4.30-5.90); White Blood Count* 4.15 K/uL (4.50-11.00)
[2023-01-24 06:34] LABS: Albumin* 3.2 g/dL (3.3-5.0)
[2023-01-24 06:35] LABS: Chloride* 104 mmol/L (96-114); Potassium* 3.8 mmol/L (3.6-5.1); Sodium* 141 mmol/L (135-149)
[2023-01-24 06:37] LABS: Anion Gap 9 mEq/L (7-15); Aspartate Amino Transferase* 45 U/L (12-35); Bilirubin Total* 0.7 mg/dL (0.1-1.5); Carbon Dioxide* 28 mmol/L (20-32); Creatinine* 1.8 mg/dL (0.5-1.5); Est. Creatinine Clearance* 42.41; Estimated Glomerular Filt Rate 41 ml/min; Total Protein* 6.6 g/dL (6.0-8.3)
[2023-01-24 06:38] LABS: Alanine Aminotransferase* 20 U/L (4-50); Alkaline Phosphatase* 165 U/L (40-150); Blood Urea Nitrogen* 24 mg/dL (7-30); Calcium* 9.1 mg/dL (8.4-10.6); Glucose* 118 mg/dL (60-115)
[2023-01-24 06:42] LABS: Slide Review Reflex No
--- NOTE | 2023-01-24 07:30 | CRLHL7_ITS ---
For Patients: As a result of the Century Cures Act, medical imaging exams and procedure reports are released immediately into your electronic medical record. You may view this report before your referring provider. If you have questions, please contact your health care provider. INDICATION: Confusion COMPARISON: 11/11/2022 TECHNIQUE: A CT volumetric acquisition was performed of the brain without IV contrast. Please note that all CT scans at this facility use dose modulation, iterative reconstruction, and/or weight-based dosing when appropriate to reduce radiation dose to as low as reasonably achievable. FINDINGS: Mild generalized cortical atrophy is present. Vascular calcifications are noted in the distal vertebral arteries. Patchy areas of low attenuation in the white matter again noted. Old lacunar infarcts involving the caudate nuclei. No hemorrhage or extra-axial fluid collection. No hydrocephalus or midline shift. The sinuses are clear. Increased opacification of the right mastoid air cells. IMPRESSION: No intracranial hemorrhage or hydrocephalus. Right mastoid effusion. Please note that all CT scans at this facility use dose modulation, iterative reconstruction, and/or weight-based dosing when appropriate to reduce radiation dose to as low as reasonably achievable. Dictated by Ector Underwood MD @ 01/24/2023 9:08:28 AM (Electronically Signed)
--- NOTE | 2023-01-24 07:53 | PM.IMPN1 ---
Progress Note: A&P Assessment and plan (1) CAP (community acquired pneumonia): Problem details: -continue abx as started at admission -CT Chest: no pneumonia. small right pleural effusion. -discussion with (pt is not obviously bacteremic, hypoxic) about care goals Status: Acute (2) HCC (hepatocellular carcinoma): Problem details: Known, metastatic, extremely poor prognosis Hospice appropriate Status: Acute (3) PAF (paroxysmal atrial fibrillation): Problem details: Continue metoprolol from home dosing regimen. P.r.n. metoprolol to keep rate under 110. Status: Acute (4) Esophageal varices: Problem details: Likely the cause of his chronic blood loss anemia. Transfuse this week at [place]. Hemoglobin stable currently Status: Acute (5) Chronic systolic CHF (congestive heart failure), NYHA class 3: Problem details: Stable currently Status: Acute (6) GI bleed: Problem details: Stable currently Status: Acute (7) Diabetes: Problem details: Known. Goal is not 1st strict/tight control. Status: Acute Subjective Date Seen: 01/24/23 Interval history: DAY OF ADMISSION FOLLOWUP Reviewed H&P done by our tele health partners. Patient is about the same. Mild confusion. Patient did understand what pneumonia mint. He said he could remember his 's name. He asked what was going on. RN NOTE: Pt admitted to unit around 0130. Pt alert and oriented to self only. Pt was drowsy and at time would fall asleep during conversation.?Afebrile. Pt reports pain in URQ pain but was unable to rate the pain. Pt denies chest pain and N/V. Pt lung sounds both anteriorly and posteriorly have fine crackles, and posterior bases are diminished. Pt reports SOB and it is noted with exertion Pt had 1 incontinent episode of urine overnight, bed sheets and gown changed and pt cleaned up. Pt slept throughout most of night.?? Vital signs remained stable. He remains on room air. No medication changes from admission. He continues on azithromycin and Rocephin to cover for community-acquired pneumonia. I did add a procalcitonin, CRP and ammonia levels. His creatinine has improved from 2.0-1.8 which is essentially his baseline. His ammonia level is normal. His CRP has bumped from 5.3-6.2 any has I positive or elevated procalcitonin at 0.85 1VIEW CXR ON ADMISSION 01/23 IMPRESSION: Low lung volumes limit evaluation. Ill-defined hazy opacification of the right lower lung zone may represent atelectasis or a developing pneumonia. NOVEMBER CAP CT IN OUR ED: IMPRESSION: Findings suggestive of known malignancy, including: - Large heterogeneous mass involving the right abdominal mesentery with invasion into the adjacent abdominal wall, difficult to accurately measure but measuring up to 14.9 centimeters. - Additional adjacent 3.7 centimeter ventral mesenteric/abdominal wall lesion. - Soft tissue thickening about the josé luis hepatis about the common bile duct and portal vein, possibly sequela of prior liver transplantation. - Large left axillary mass measuring approximately 8.5 centimeters. - Few rounded foci along the peripheral aspect of the infra cardiac IVC, possibly tumor thrombus given appearance. Lack of prior imaging does not allow for assessment of interval change. spoke with rads about Chest CT - small right pleural effusion. no PNA. discussed possibility of brain mets; will order brain MR. Exam Const: Vital Signs, click to edit/add: Vital Signs - 24 hr 01/23/23 18:44 01/23/23 21:48 01/23/23 21:49 Temperature 98.3 F Pulse Rate 91 100 Pulse Rate [Pulse Oximeter] Pulse Rate [Right Pulse Oximeter] 87 Respiratory Rate 18 14 Blood Pressure 119/74 Blood Pressure [13 7/75] 137/75 Blood Pressure [Le ft Arm] Pulse Oximetry 96 91 94 Oxygen Delivery Me thod Room Air 01/23/23 22:00 01/23/23 22:02 01/23/23 22:15 Temperature Pulse Rate 84 96 Pulse Rate [Pulse Oximeter] Pulse Rate [Right Pulse Oximeter] Respiratory Rate Blood Pressure 129/73 Blood Pressure [13 7/75] Blood Pressure [Le ft Arm] Pulse Oximetry 94 95 95 Oxygen Delivery Me thod 01/23/23 22:30 01/23/23 22:32 01/23/23 22:38 Temperature Pulse Rate 98 105 H Pulse Rate [Pulse Oximeter] Pulse Rate [Right Pulse Oximeter] Respiratory Rate Blood Pressure 136/77 Blood Pressure [13 7/75] Blood Pressure [Le ft Arm] Pulse Oximetry 95 95 94 Oxygen Delivery Me thod 01/23/23 22:54 01/23/23 23:00 01/23/23 23:02 Temperature Pulse Rate 96 96 95 Pulse Rate [Pulse Oximeter] Pulse Rate [Right Pulse Oximeter] Respiratory Rate Blood Pressure 139/78 Blood Pressure [13 7/75] Blood Pressure [Le ft Arm] Pulse Oximetry 96 94 94 [facility] 01/23/23 23:03 01/23/23 23:15 01/23/23 23:30 Temperature Pulse Rate 97 96 101 H Pulse Rate [Pulse Oximeter] Pulse Rate [Right Pulse Oximeter] Respiratory Rate Blood Pressure Blood Pressure [13 7/75] Blood Pressure [Le ft Arm] Pulse Oximetry 94 96 94 [facility] 01/23/23 23:32 01/23/23 23:45 01/24/23 00:00 Temperature Pulse Rate 98 98 96 Pulse Rate [Pulse Oximeter] Pulse Rate [Right Pulse Oximeter] Respiratory Rate Blood Pressure 147/79 H Blood Pressure [13 7/75] Blood Pressure [Le ft Arm] Pulse Oximetry 95 95 98 [facility] 01/24/23 00:00 01/24/23 00:02 01/24/23 00:02 Temperature Pulse Rate 93 93 Pulse Rate [Pulse Oximeter] Pulse Rate [Right Pulse Oximeter] Respiratory Rate Blood Pressure 140/77 H 140/77 H Blood Pressure [13 7/75] Blood Pressure [Le ft Arm] Pulse Oximetry 98 97 97 [facility] 01/24/23 00:02 01/24/23 00:31 01/24/23 01:02 Temperature Pulse Rate 93 95 90 Pulse Rate [Pulse Oximeter] Pulse Rate [Right Pulse Oximeter] Respiratory Rate 16 16 Blood Pressure 140/77 H 114/76 138/80 Blood Pressure [13 7/75] Blood Pressure [Le ft Arm] Pulse Oximetry 97 99 97 [facility] 01/24/23 01:30 01/24/23 01:35 01/24/23 01:43 Temperature 98.4 F 98.3 F Pulse Rate Pulse Rate [Pulse Oximeter] 88 Pulse Rate [Right Pulse Oximeter] 85 Respiratory Rate 16 16 16 Blood Pressure Blood Pressure [13 7/75] 138/80 Blood Pressure [Le ft Arm] 170/90 H Pulse Oximetry 97 96 97 Oxygen Delivery [facility] Room Air Room Air Room Air 01/24/23 02:50 Temperature 98.5 F Pulse Rate Pulse Rate [Pulse Oximeter] 87 Pulse Rate [Right Pulse Oximeter] Respiratory Rate 16 Blood Pressure Blood Pressure [13 7/75] Blood Pressure [Le ft Arm] 152/85 H Pulse Oximetry 95 Oxygen Delivery Me thod Room Air Labs Labs: Laboratory Results - last 24 hr 01/23/23 01/23/23 01/24/23 21:06 21:10 00:08 WBC 4.69 RBC 3.25 L Hgb 8.0 L Hct 25.3 L MCV 78 L MCH 25 L MCHC 32 RDW Coeff of Brissa 17.1 H Plt Count 285 Neut % (Auto) 72.6 H Lymph % (Auto) 16.8 L [place] % (Auto) 9.2 Eos % (Auto) 0.6 Baso % (Auto) 0.4 Neut # (Auto) 3.40 Lymph # (Auto) 0.80 L [place] # (Auto) 0.40 Eos # (Auto) 0.03 Baso # (Auto) 0.02 Abs Immat Gran (auto) 0.02 Imm/Tot Granulo (auto) 0.4 Sodium 135 Potassium 3.9 Chloride 101 Carbon Dioxide 26 Anion Gap 8 BUN 29 Creatinine 2.0 H Estimated Creat Clear Estimated GFR 36 Glucose 118 H Lactate 1.0 Calcium 9.1 Total Bilirubin 0.8 Direct Bilirubin 0.2 AST 51 H ALT 22 Alkaline Phosphatase 176 H C-Reactive Protein 5.3 H Total Protein 6.9 Albumin 3.4 Lipase 164 Urine Color Yellow Urine Appearance Clear Urine pH 6.0 Ur Specific [place] 1.015 Urine Protein 2+ A Urine Glucose (UA) Negative Urine Ketones Negative Urine Blood Trace-intact A Urine Nitrite Negative Urine Bilirubin Negative Urine Urobilinogen 0.2 Ur Leukocyte Esterase Negative Urine RBC 0-2 Urine WBC 0-2 Ur Squamous Epith Cells Few Urine Bacteria Few A SARS-CoV-2 (PCR) Negative SARS-CoV-2 01/24/23 05:49 WBC 4.15 L RBC 3.49 L Hgb 8.4 L Hct 27.2 L MCV 78 L MCH 24 L MCHC 31 L RDW Coeff of Brissa 17.1 H Plt Count 277 Neut % (Auto) 71.6 Lymph % (Auto) 14.9 L [place] % (Auto) 9.9 Eos % (Auto) 1.2 Baso % (Auto) 0.5 Neut # (Auto) 3.00 Lymph # (Auto) 0.60 L [place] # (Auto) 0.40 Eos # (Auto) 0.00 Baso # (Auto) 0.00 Abs Immat Gran (auto) 0.10 Imm/Tot Granulo (auto) 1.9 Sodium 141 Potassium 3.8 Chloride 104 Carbon Dioxide 28 Anion Gap 9 BUN 24 Creatinine 1.8 H Estimated Creat Clear 42.41 Estimated GFR 41 Glucose 118 H Lactate Calcium 9.1 Total Bilirubin 0.7 Direct Bilirubin AST 45 H ALT 20 Alkaline Phosphatase 165 H C-Reactive Protein Total Protein 6.6 Albumin 3.2 L Lipase Urine Color Urine Appearance Urine pH Ur Specific [place] Urine Protein Urine Glucose (UA) Urine Ketones Urine Blood Urine Nitrite Urine Bilirubin Urine Urobilinogen Ur Leukocyte Esterase Urine RBC Urine WBC Ur Squamous Epith Cells Urine Bacteria SARS-CoV-2 (PCR)
[2023-01-24 08:21] LABS: C Reactive Protein* 6.2 mg/dL (0.5-1.0)
[2023-01-24 08:35] LABS: Procalcitonin* 0.85 ng/mL (<0.50)
[2023-01-24 09:04] LABS: Ammonia* < 9.0 umol/L (13.1-30.0)
[2023-01-24] MEDS: METOPROLOL TARTRATE 25 MG TABLET PO ×3 (09:36→20:49)
[2023-01-24] MEDS: AMLODIPINE 10 MG TABLET PO (09:36)
[2023-01-24] MEDS: LOSARTAN POTASSIUM 50 MG TABLET PO (09:37)
[2023-01-24] MEDS: OMEPRAZOLE 20 MG CAPSULE DR 40 MG PO (09:39)
[2023-01-24] MEDS: MAGNESIUM OXIDE 400 MG TABLET PO (09:39)
--- NOTE | 2023-01-24 10:39 | CRLHL7_ITS ---
For Patients: As a result of the 21st Century Cures Act, medical imaging exams and procedure reports are released immediately into your electronic medical record. You may view this report before your referring provider. If you have questions, please contact your health care provider. INDICATION: Confusion, cough, weakness. Hx lung cancer. COMPARISON: Same day chest radiograph TECHNIQUE: CT chest without contrast. Multiplanar axial, coronal, and sagittal reformats are included. Intravenous contrast: None FINDINGS: Lungs: Inspiratory phase imaging. There is a 6 millimeter calcified round nodule in the anterior right upper lobe. There are 2 adjacent noncalcified round nodules in the right upper lobe that measure 8 and 4 mm. 3 millimeter nodule posteromedial right upper lobe. There are a few peripheral and perifissural benign-appearing nodules. Wedge resection right lower lobe. No nodularity at the resection site. No consolidations. Normal appearance of the pulmonary interstitium. Pleura: Small right pleural effusion. No pleural nodularity or thickening seen on noncontrast CT. No pneumothorax. Airway: Normal tracheobronchial tree. Lymph nodes: Coarse calcifications in nonenlarged mediastinal/precarinal lymph node, likely related to granulomatous disease.. Mediastinum: No pneumomediastinum. Heart and great vessels: No pericardial effusion. Normal cardiac chamber size. Few Chest wall: Heterogeneously enhancing round soft tissue mass in the left axilla/upper chest wall. This measures 8.3 x 5.5 x 9.1 cm Upper abdomen: Partially visualized large heterogeneously enhancing abdominal wall mass. Surgical clips at the josé luis hepatis. IMPRESSION: 1. Small right pleural effusion of unclear etiology on CT. 2. Large abdominal mass and left axillary metastases. Suspect a few small right-sided pulmonary metastases as well. Discussed with Dr. Guold at 1:24 p.m. LMFT on 01/24/[address] Rizo. Please note that all CT scans at this facility use dose modulation, iterative reconstruction, and/or weight-based dosing when appropriate to reduce radiation dose to as low as reasonably achievable. Dictated by Li Rizo MD @ 01/24/2023 1:24:42 PM (Electronically Signed)
--- NOTE | 2023-01-24 13:21 | CRLHL7_ITS ---
For Patients: As a result of the Century Cures Act, medical imaging exams and procedure reports are released immediately into your electronic medical record. You may view this report before your referring provider. If you have questions, please contact your health care provider. INDICATION: Acute confusion. TECHNIQUE: Multiplanar multisequence MR imaging acquired through the brain prior to and following intravenous contrast. COMPARISON: CT brain 01/24/2023. FINDINGS: Artifact degrades postcontrast images. Small focus of diffusion hyperintense signal abnormality within the anterior left frontal white matter demonstrating ADC isointensity (series 3, image 40), most compatible with a late subacute to chronic infarction. Prominence of the ventricles and sulci compatible with [id number]-ea-[id number] diffuse cerebral volume loss. No mass effect or midline shift. Confluent FLAIR hyperintensities in the supratentorial white matter, thalami, and ra, typical for advanced chronic microvascular ischemic changes. Chronic lacunar infarctions in the bilateral centrum semiovale, bilateral snow radiata, basal ganglia, and thalami. Punctate foci of susceptibility within the thalami, most typical for chronic microhemorrhages. No recent intracranial hemorrhage or pathologic extra-axial fluid collection. No pathologic intracranial enhancement within exam limitations. The major arterial flow voids of the skullbase are preserved. Thinning of the ocular lenses. The paranasal sinuses are well aerated. Large right mastoid effusion. IMPRESSION: 1. No acute intracranial abnormality. 2. Small late subacute to chronic infarction within the anterior left frontal white matter. 3. Advanced chronic microvascular ischemic changes with superimposed chronic lacunar infarctions. 4. Woxs-pj-bxjftuxb diffuse cerebral volume loss. 5. Large right mastoid effusion. Dictated by Eloy Ross MD @ 01/24/2023 4:25:11 PM (Electronically Signed)
--- NOTE | 2023-01-24 16:11 | PC.SOCIAL ---
Discharge Planning: Preliminary meeting with spouse, Miguelina and daughter, Mattie. Family reports that someone is always with patient at home and he is never left alone. They are hoping that he will be able to return home. Family open to and waiting for recommendations for patient. Social work to follow up as needed.
--- NOTE | 2023-01-24 19:46 | PC.NURSE ---
Patient pleasant. Oriented to self, but not place, time or situation. Napped frequently. Patient falling asleep mid conversation during AM assessment. Denied pain. Teary after MRI this afternoon. Tolerated regular diet. Incontinent of urine at times, reporting to staff that he needed to be changed. This afternoon he asked to use the toilet and was continent of urine at that time. Heart rate elevated at beginning of shift. MD updated. Telemetry ordered. Telemetry read A-Fib with RVR and heart rate 108-150. Medications reviewed by pharmacy and Metoprolol was given. Heart rate decreased between 80-90 BPM. Patient returned from chest CT and Tele was replaced and noted to be in NSR with rate 70-90 BPM. Up with 1-2 assist, walker and gait belt.
[2023-01-25] VITALS (13 sets, daily range): BP systolic 143–165; BP diastolic 75–95; PULSE 76–97; RESP 14–20; TEMP 36.4–37.3; O2SAT 95–100
[2023-01-25] MEDS: cefTRIAXone 1 GM in 0.9 % SODIUM CHLORIDE Mini-bag 100 ML IVPB (01:50)
[2023-01-25] MEDS: SODIUM CHLORIDE 0.9 % (FLUSH) 10 ML SYRINGE 5 ML IVF ×3 (01:52→21:05)
[2023-01-25] MEDS: AZITHROMYCIN 500 MG in 0.9 % SODIUM CHLORIDE 250 ml 250 ML 255 MG IVPB (02:38)
--- NOTE | 2023-01-25 05:31 | PC.NURSE ---
[id number] Pt slept during evening, had difficulty staying asleep during night, awoke frequently repositioning for comfort. incontinent/continent of urine during night, continent of bowel x2. denied pain, headache, N/V or chest pain. ambulated to restroom with walker, gb, 1 assist, tolerated activity fair, needs help with direction.
[2023-01-25 06:20] LABS: HCO3 VBG 28 mmol/L (21-28); PCO2 VBG 43 mmHG (40-50); PO2 VBG 35.5 mmHG (25-47); pH VBG 7.423 (7.32-7.43)
[2023-01-25 06:27] LABS: Basophils Percent Auto 0.5 % (0.0-3.0); Hematocrit 26.2 % (37.0-53.0); Hemoglobin* 8.2 gm/dL (13.5-17.5); Immature Granulocytes Pct Auto 0.8 %; Lymphocytes Percent Auto 11.5 % (20-44); Mean Corpuscular HGB Conc 31 gm/dL (32-36); Mean Corpuscular Hemoglobin 24 pg (26-34); Mean Corpuscular Volume 78 fL (80-100); Monocytes Percent Auto 8.9 % (0.0-11.0); Neutrophils Percent Auto 77.3 % (42.0-72.0); Platelet Count* 275 K/uL (140-440); RDW Coefficient of Variation % 17.1 % (11.5-15.5); Red Blood Count 3.36 m/uL (4.30-5.90); White Blood Count* 3.84 K/uL (4.50-11.00)
[2023-01-25 06:28] LABS: Slide Review Reflex No
[2023-01-25 06:58] LABS: Albumin* 3.2 g/dL (3.3-5.0); Chloride* 107 mmol/L (96-114)
[2023-01-25 06:59] LABS: Potassium* 3.8 mmol/L (3.6-5.1); Sodium* 140 mmol/L (135-149)
[2023-01-25 07:01] LABS: Anion Gap 6 mEq/L (7-15); Aspartate Amino Transferase* 36 U/L (12-35); Bilirubin Direct* 0.3 mg/dL (0.0-0.5); Bilirubin Total* 0.8 mg/dL (0.1-1.5); Carbon Dioxide* 27 mmol/L (20-32); Creatinine* 1.6 mg/dL (0.5-1.5); Est. Creatinine Clearance* 47.72; Estimated Glomerular Filt Rate 47 ml/min; Total Protein* 6.8 g/dL (6.0-8.3)
[2023-01-25 07:02] LABS: Alanine Aminotransferase* 18 U/L (4-50); Alkaline Phosphatase* 162 U/L (40-150); Blood Urea Nitrogen* 20 mg/dL (7-30); Calcium* 9.2 mg/dL (8.4-10.6); Glucose* 153 mg/dL (60-115); Phosphorus* 3.3 mg/dL (2.5-4.5)
[2023-01-25 07:04] LABS: C Reactive Protein* 6.1 mg/dL (0.5-1.0)
[2023-01-25 07:16] LABS: Procalcitonin* 0.68 ng/mL (<0.50)
[2023-01-25 08:14] LABS: Thyroid Stimulating Hormone* 0.509 uIU/mL (0.270-4.20)
[2023-01-25] MEDS: ACETAMINOPHEN 325 MG TABLET 650 MG PO ×2 (09:33→17:42)
[2023-01-25] MEDS: HYDROmorphone 2 MG TABLET PO ×2 (09:34→17:41)
[2023-01-25] MEDS: AMLODIPINE 10 MG TABLET PO (09:34)
[2023-01-25] MEDS: OMEPRAZOLE 20 MG CAPSULE DR 40 MG PO (09:34)
[2023-01-25] MEDS: METOPROLOL TARTRATE 25 MG TABLET PO ×2 (09:35→21:03)
[2023-01-25] MEDS: MAGNESIUM OXIDE 400 MG TABLET PO (09:35)
[2023-01-25] MEDS: LOSARTAN POTASSIUM 50 MG TABLET PO (09:35)
--- NOTE | 2023-01-25 11:19 | REH.PT ---
Pt refused PT this AM, nsg would like PT to hold tx today as pt is very fatigued.
[2023-01-25] MEDS: LORazepam 2 MG/ML inj IVP (11:30)
--- NOTE | 2023-01-25 11:37 | P.IMPN_ITS ---
Progress Note: A&P Assessment and plan (1) Acute alteration in mental status: Problem details: -new/acute evidence of delirium/AMS. Likely due to new an evolving CVA, right frontal lobe. Ongoing progressive metastatic cancer. -IV Ativan ordered and available to help keep patient safe -correct any reversible metabolic or toxic etiologies (none identified) Status: Acute (2) HCC (hepatocellular carcinoma): Problem details: Known, metastatic, extremely poor prognosis Hospice appropriate Status: Acute (3) CAP (community acquired pneumonia): Problem details: -continue abx as started at admission despite no radiographic evidence of pneumonia -CT Chest: no pneumonia. small right pleural effusion. -continue to follow cultures clear Status: Acute (4) PAF (paroxysmal atrial fibrillation): Problem details: -spontaneously converted 01/24/2023 Continue metoprolol from home dosing regimen. P.r.n. metoprolol to keep rate under 110. Status: Acute (5) Esophageal varices: Problem details: Likely the cause of his chronic blood loss anemia. Transfuse this week at [place]. Hemoglobin drifting down to 8.2. Ordered 1 unit of packed cells 01/24/2023 Status: Acute (6) Chronic systolic CHF (congestive heart failure), NYHA class 3: Problem details: Stable currently Status: Acute (7) Diabetes: Problem details: Known. Goal is not 1st strict/tight control. Status: Acute (8) Mastoid disorder: Problem details: no evidence of acute or chronic otitis. no adenopathy. observe for now. Status: Acute Subjective Date Seen: 01/25/23 Interval history: Daily Progress Note - Hospital Medicine #: 2 CC: Weakness, AMS OVERNIGHT UPDATES FROM STAFF & MED, LAB, IMAGING UPDATES -both chest CT and brain MRI were completed 01/24/2023. No evidence of pneumonia. Brain MRI shows distant CVAs as well as a subacute CVA in the frontal lobe. This may explain some of the acute symptoms. I have kept the antibiotics going despite a negative chest CT. By yesterday evening he seemed to be improving. However this morning he is more confused and became combative during packed cell blood transfusion. This required restraining him for his own safety and 1 mg of IV lorazepam. No fever overnight. Mildly hypertensive 150s over 80s. Pulse rate is 70s to 80s. Respiratory rate is 14 and unlabored. He is 97% on room air. Hemoglobin is down to 8.2. No active bleeding identified. White blood cell count 3.8. Platelet count normal. Creatinine is down to 1.6 from his baseline of about 1.8 -2.0 Electrolytes are stable, normal LFTs are stable. C reactive protein is stable. Procalcitonin is down trending. Brain MRI IMPRESSION: 1. No acute intracranial abnormality. 2. Small late subacute to chronic infarction within the anterior left frontal white matter. 3. Advanced chronic microvascular ischemic changes with superimposed chronic lacunar infarctions. 4. Iatz-ip-wegdjqcl diffuse cerebral volume loss. 5. Large right mastoid effusion. Chest CT IMPRESSION: 1. Small right pleural effusion of unclear etiology on CT. 2. Large abdominal mass and left axillary metastases. Suspect a few small right-sided pulmonary metastases as well. NOVEMBER CAP CT IN OUR ED: IMPRESSION: Findings suggestive of known malignancy, including: - Large heterogeneous mass involving the right abdominal mesentery with invasion into the adjacent abdominal wall, difficult to accurately measure but measuring up to 14.9 centimeters. - Additional adjacent 3.7 centimeter ventral mesenteric/abdominal wall lesion. - Soft tissue thickening about the josé luis hepatis about the common bile duct and portal vein, possibly sequela of prior liver transplantation. - Large left axillary mass measuring approximately 8.5 centimeters. - Few rounded foci along the peripheral aspect of the infra cardiac IVC, possibly tumor thrombus given appearance. Lack of prior imaging does not allow for assessment of interval change. Objective: Tired appearing. Pale. Chronically ill-appearing. Mumbles mostly appropriate answers. No pain meds overnight. However this morning he does sta te that he is hurting. Vitals: see above HEENT: specifically - right TM normal. no infection. no swelling or palpable lymphadenopathy around his right mastoid. Lungs: Clear. Cardiac: S1S2. Disposition/Potential discharge - Likely to return to previous living situation. Today I spent 50minutes seeing the patient, reviewing Expanse and EPIC notes/diagnostics, discussing the care plan with our care time that includes social work, PT/OT, pharmacy, RT, senior living and documenting my impressions and plan in the medical record. Exam Const: Vital Signs, click to edit/add: Vital Signs - 24 hr 01/24/23 15:00 01/24/23 15:00 01/24/23 15:00 Temperature 98.8 F Pulse Rate 81 Pulse Rate [Pulse Oximeter] 85 85 Respiratory Rate 16 16 Blood Pressure Blood Pressure [Le ft Arm] 123/68 Pulse Oximetry 97 Oxygen Delivery Me thod Room Air 01/24/23 19:00 01/24/23 23:00 01/24/23 23:00 Temperature 99.1 F Pulse Rate 84 Pulse Rate [Pulse Oximeter] 94 Respiratory Rate 16 16 Blood Pressure Blood Pressure [Le ft Arm] 135/72 Pulse Oximetry 96 Oxygen Delivery Me thod Room Air 01/24/23 23:00 01/25/23 03:00 01/25/23 07:00 Temperature 99.5 F 99.2 F 97.5 F L Pulse Rate Pulse Rate [Pulse Oximeter] 85 81 92 Respiratory Rate 16 18 14 Blood Pressure Blood Pressure [Le ft Arm] 147/88 H 152/85 H 144/76 H Pulse Oximetry 96 96 98 Oxygen Delivery Me thod Room Air Room Air Room Air 01/25/23 07:48 01/25/23 10:08 01/25/23 10:20 Temperature 98.5 F 98.5 F Pulse Rate 84 87 87 Pulse Rate [Pulse Oximeter] Respiratory Rate 14 14 Blood Pressure 151/86 H 151/86 H Blood Pressure [Le ft Arm] Pulse Oximetry 97 97 Oxygen Delivery Me thod 01/25/23 10:37 Temperature 98.2 F Pulse Rate 76 Pulse Rate [Pulse Oximeter] Respiratory Rate 14 Blood Pressure 150/93 H Blood Pressure [Le ft Arm] Pulse Oximetry 97 Oxygen Delivery Me thod Labs Labs: Laboratory Results - last 24 hr 01/25/23 01/25/23 06:04 06:09 WBC 3.84 L RBC 3.36 L Hgb 8.2 L Hct 26.2 L MCV 78 L MCH 24 L MCHC 31 L RDW Coeff of Brissa 17.1 H Plt Count 275 Neut % (Auto) 77.3 H Lymph % (Auto) 11.5 L [place] % (Auto) 8.9 Eos % (Auto) 1.0 Baso % (Auto) 0.5 Neut # (Auto) 3.00 Lymph # (Auto) 0.40 L [place] # (Auto) 0.30 Eos # (Auto) 0.00 Baso # (Auto) 0.00 Abs Immat Gran (auto) 0.00 Imm/Tot Granulo (auto) 0.8 VBG pH 7.423 VBG pCO2 43 VBG pO2 35.5 VBG HCO3 28 Sodium 140 Potassium 3.8 Chloride 107 Carbon Dioxide 27 Anion Gap 6 L BUN 20 Creatinine 1.6 H Estimated Creat Clear 47.72 Estimated GFR 47 Glucose 153 H Calcium 9.2 Phosphorus 3.3 Total Bilirubin 0.8 Direct Bilirubin 0.3 AST 36 H ALT 18 Alkaline Phosphatase 162 H C-Reactive Protein 6.1 H Total Protein 6.8 Albumin 3.2 L Procalcitonin 0.68 H TSH 0.509 Blood Type O Positive Antibody Screen NEGATIVE Crossmatch (AHG) See Detail
[2023-01-25] MEDS: LORazepam 2 MG/ML inj 1 MG IM (12:04)
--- NOTE | 2023-01-25 12:24 | PC.NURSE ---
1050: Master Motorcycle Technician entered room to find pt standing with blood on gown, hands, bed, and floor. Pt was receiving blood and had ripped open line. Master Motorcycle Technician got pt back into bed, cleaned up floor & pt. Pt was confused, but calm and was redirectable. 1105: RN working with selling underwriter came into help out. RN was redressing IV so that we could continue giving blood when pt picked up IV dressing kit and threw it to the floor forcefully. RN reassured and talked to pt and pt began to swing with his right arm at RN. RN and selling underwriter attempted to reassure, reorient, and redirect pt. Pt began to try and lift legs to kick at RN. Master Motorcycle Technician called Dr. Chavez. Team came running. Team held pt by arms and legs to keep pt and staff safe and administered 1mg ativan IV. Pt calmed shortly after. Restarted PRBCs. Pt still confused, having several tearful episodes, making comments about wanting to be transferred to the other pugh, and about life and if it will be back to normal. Master Motorcycle Technician questioned if he would like to speak with a camp cook. Pt declined.
--- NOTE | 2023-01-25 16:03 | NUTR.NU ---
RDN follow-up. See nutrition assessment 01/23 for full details. Patient continues to eat poorly. Pt with AMS and no pt interview performed. Did accept a nutrition supplement today. Will order Ensure Enlive BID. Nutrition to continue to follow oral intake, plan of care.
--- NOTE | 2023-01-25 16:43 | PC.SOCIAL ---
Discharge Planning: Hospice information meeting as requested. Met with spouse, Miguelina and two daughters. Danielle was walked by nurse down the hallway and joined meeting but was unable to participate. Explained hospice philosophy and services. Explained in home hospice vs facility. Answered questions. Supplied family with Hospice pamphlet and list of area hospices. Family will discuss together over the weekend and make decision. Social work to follow up as needed.
--- NOTE | 2023-01-25 16:52 | CRLHL7_ITS ---
For Patients: As a result of the Century Cures Act, medical imaging exams and procedure reports are released immediately into your electronic medical record. You may view this report before your referring provider. If you have questions, please contact your health care provider. INDICATION: PT FELL AND HIT SIDE OF HEAD ON WALL TECHNIQUE: CT of the head without contrast. Coronal and sagittal reformats. Bone and soft tissue algorithms. COMPARISON: MRI 01/24/2023 FINDINGS: No acute intracranial hemorrhage or extraaxial collection. No evidence of acute cortical infarction. Chronic lacunar infarcts in the centrum semiovale. No mass effect or midline shift. Moderate generalized parenchymal volume loss. Moderate regions of decreased attenuation within the periventricular and subcortical white matter of both cerebral hemispheres most likely reflects chronic microvascular ischemic disease and age related change in this patient. Vascular calcifications within the carotid siphons. Orbital contents are normal. No calvarial fractures. No lytic or sclerotic osseous lesions within the calvarium or skull base. Scalp and other imaged soft tissue structures are normal. Complete opacification of the right mastoid air cells and middle ear cavity. IMPRESSION: 1. No acute intracranial abnormality. 2. Stable moderate chronic small vessel disease and moderate generalized parenchymal volume loss. 3. Stable complete opacification of the right mastoid air cells and middle ear cavity. Please note that all CT scans at this facility use dose modulation, iterative reconstruction, and/or weight-based dosing when appropriate to reduce radiation dose to as low as reasonably achievable. Dictated by Ector De La Cruz MD @ 01/25/2023 6:46:10 PM (Electronically Signed)
--- NOTE | 2023-01-25 17:04 | W.PM.CROSSCO ---
Subjective Subjective Interval history: patient had witnessed fall; hit his head Plan -obtain CT head -cbc and bmp -fall precautions -1:1 sitter -change rooms to closer to Rns
[2023-01-25 17:33] LABS: Basophils Percent Auto 0.5 % (0.0-3.0); Eosinophils Percent Auto 0.8 % (0.0-7.0); Hemoglobin* 9.4 gm/dL (13.5-17.5); Immature Granulocytes Pct Auto 1.1 %; Lymphocytes Percent Auto 10.8 % (20-44); Mean Corpuscular HGB Conc 31 gm/dL (32-36); Mean Corpuscular Hemoglobin 25 pg (26-34); Mean Corpuscular Volume 80 fL (80-100); Monocytes Percent Auto 8.4 % (0.0-11.0); Neutrophils Percent Auto 78.4 % (42.0-72.0); Platelet Count* 262 K/uL (140-440); RDW Coefficient of Variation % 17.5 % (11.5-15.5); Red Blood Count 3.75 m/uL (4.30-5.90)
[2023-01-25 17:41] LABS: Slide Review Reflex No
--- NOTE | 2023-01-25 17:48 | CRLHL7_ITS ---
For Patients: As a result of the Century Cures Act, medical imaging exams and procedure reports are released immediately into your electronic medical record. You may view this report before your referring provider. If you have questions, please contact your health care provider. Indication: fall, pain in buttocks area, ? femoral neck laterally nonspecified fx sic Technique: AP view pelvis Comparison: None Findings: The iliac wings are incompletely included. No acute fracture is identified. Loss of left hip joint space, acetabular roofs and chondral irradiation and small lateral left femoral head neck osteophyte consistent with osteoarthrosis. Impression: No acute traumatic injury is identified on this radiographic examination. Dictated by Neptali Red MD @ 01/25/2023 7:58:51 PM (Electronically Signed)
--- NOTE | 2023-01-25 17:48 | CRLHL7_ITS ---
For Patients: As a result of the Cures Act, medical imaging exams and procedure reports are released immediately into your electronic medical record. You may view this report before your referring provider. If you have questions, please contact your health care provider. Indication: fall, pain in buttocks area, ? femoral neck (laterally not specified) fx (sic) Technique: Lateral right hip, one-view Comparison: No prior study Findings: Normal mineralization and alignment. No fracture is identified. Unremarkable soft tissues. Impression: No acute findings. Dictated by Neptali Red MD @ 01/25/2023 8:02:19 PM (Electronically Signed)
--- NOTE | 2023-01-25 17:48 | CRLHL7_ITS ---
For Patients: As a result of the Cures Act, medical imaging exams and procedure reports are released immediately into your electronic medical record. You may view this report before your referring provider. If you have questions, please contact your health care provider. Indication: fall, pain in buttocks area, ? femoral neck (laterally not specified) fx (sic) Technique: Lateral left hip, one view Comparison: No prior studies Findings: Normal mineralization and alignment no fracture is identified. Unremarkable soft tissues. Impression: No acute finding. Dictated by Neptali Red MD @ 01/25/2023 8:03:26 PM (Electronically Signed)
[2023-01-25 17:50] LABS: Chloride* 108 mmol/L (96-114); Sodium* 142 mmol/L (135-149)
[2023-01-25 17:52] LABS: Creatinine* 1.4 mg/dL (0.5-1.5); Est. Creatinine Clearance* 54.53; Estimated Glomerular Filt Rate 55 ml/min
[2023-01-25 17:53] LABS: Anion Gap 8 mEq/L (7-15); Blood Urea Nitrogen* 19 mg/dL (7-30); Carbon Dioxide* 26 mmol/L (20-32); Glucose* 193 mg/dL (60-115)
[2023-01-25 17:54] LABS: Calcium* 9.3 mg/dL (8.4-10.6)
--- NOTE | 2023-01-25 18:21 | PC.NURSE ---
During PRBC transfusion this morning pt was observed getting out of bed independently. There was blood on pt's gown, bedsheets, and floor and pt was discovered to have ripped apart IV tubing during transfusion as well as destroying pulse oximeter probe and wiring. Pt was confused but cooperative and able to follow directions. He was cleaned and repositioned in bed. IV remained patent but needed to be redressed. Food Safety Manager removed soiled dressing after reorientating the patient who continued to remain cooperative. Pt's demeanor rapidly changed and he grabbed wrapper of dressing kit and aggressively threw it to the ground. He then turned to make eye contact with scenario writer giving a menacing look and attempted to swing a closed fist at her face. Patient did not make physical contact with scenario writer and Dr. Chavez was called. Multiple staff quickly responded and placed pt in therapeutic hold until IV could be redressed and MD came to bedside to assess pt condition. Pt did receive 1mg Ativan IVP and was able to be redirected for safety. He did consent to completing PRBC transfusion which was successful. Pt's Miguelina updated by MD and came to bedside this afternoon with 2 other family members. Pt continued to follow commands and answer questions. Occasional confused statements such as you're going to turn me into a frog but appears to have times of lucidity. Pt walked pugh with BRYCE and sat at the end of the hallway lounge with family and social work to discuss his POC and options. Afterward he returned to bed (assist x1 with walker and GB) with family at bedside and ate 75% of a meal tray. He was later observed by staff to have again self transferred and was wandering around his room independently. Staff went to assist pt who lost his balance and fell. MD updated, post-fall assessment complete, and head CT/ pelvic x-ray completed. Results pending.
--- NOTE | 2023-01-25 18:26 | PC.NURSE ---
Elevated BP, pulse in high 90s, slightly elevated temp this evening (99.0F)- hx of afib. Pain off and on throughout day (generalized & left buttock pain)- some relief w/ oral dilaudid, tylenol, & ice. Confused, making statements such as why are you turning me into a frog. LS diminished, coarse. Abdomen asymmetrical, hypo bowel sounds. Tolerating regular diet, needs encouragement w/ drinking- ate lunch and dinner well. Incontinent of urine, brief on. No BM today, 01/25. PIV in left FA- redressed x2, patent, dressing c/d/i. Received 1 unit of PRBCs, tolerated- assess Hgb in AM per provider. Up w/ stand-by assist, walker, gait belt. Sat in chair x2, walked x2. Dr. Chavez called in AM and fall in PM (see additional notes)- MRI & xray ordered, results pending. Family here today, discussed options going forward. Will continue to monitor, follow POC, and keep pt and family updated. Shanelle Mac RN
[2023-01-26] MEDS: LORazepam 2 MG/ML inj IVP (00:05)
[2023-01-26] MEDS: cefTRIAXone 1 GM in 0.9 % SODIUM CHLORIDE Mini-bag 100 ML IVPB ×2 (02:20→21:37)
[2023-01-26] MEDS: AZITHROMYCIN 500 MG in 0.9 % SODIUM CHLORIDE 250 ml 250 ML 255 MG IVPB (02:56)
[2023-01-26 03:00] VITALS: PULSE 71; RESP 18
--- NOTE | 2023-01-26 04:09 | PC.NURSE ---
PATIENT ALERT TO SELF ONLY, AT ONE POINT PATIENT THOUGHT HE WAS ON A SHIP, ABLE TO REORIENT TO HOSPITAL, UP WALKING IN HALLWAY X1 WITH A1 WALKER AND BELT, SHUFFLING GAIT NOTED TOWARDS THE END OF THE WALK, DECLINING PAIN, INCONTINENT OF URINE.
[2023-01-26 06:42] LABS: HCO3 VBG 27 mmol/L (21-28); PCO2 VBG 40 mmHG (40-50); PO2 VBG 45.1 mmHG (25-47); pH VBG 7.433 (7.32-7.43)
[2023-01-26 06:59] LABS: Hemoglobin* 8.8 gm/dL (13.5-17.5); Mean Corpuscular HGB Conc 31 gm/dL (32-36); Mean Corpuscular Hemoglobin 25 pg (26-34); Mean Corpuscular Volume 80 fL (80-100); Platelet Count* 229 K/uL (140-440); White Blood Count* 3.49 K/uL (4.50-11.00)
[2023-01-26 07:00] VITALS: BP 133/79; PULSE 82; PULSE 84; RESP 18; TEMP 37.5; O2SAT 96
[2023-01-26 07:08] LABS: Albumin* 3.2 g/dL (3.3-5.0); Chloride* 109 mmol/L (96-114); Sodium* 141 mmol/L (135-149)
[2023-01-26 07:09] LABS: Potassium* 3.9 mmol/L (3.6-5.1)
[2023-01-26 07:11] LABS: Creatinine* 1.3 mg/dL (0.5-1.5); Est. Creatinine Clearance* 58.73; Estimated Glomerular Filt Rate 60 ml/min
[2023-01-26 07:12] LABS: Alanine Aminotransferase* 17 U/L (4-50); Alkaline Phosphatase* 146 U/L (40-150); Anion Gap 6 mEq/L (7-15); Aspartate Amino Transferase* 31 U/L (12-35); Bilirubin Direct* 0.2 mg/dL (0.0-0.5); Bilirubin Total* 0.6 mg/dL (0.1-1.5); Blood Urea Nitrogen* 16 mg/dL (7-30); Calcium* 8.9 mg/dL (8.4-10.6); Carbon Dioxide* 26 mmol/L (20-32); Glucose* 146 mg/dL (60-115); Phosphorus* 3.2 mg/dL (2.5-4.5); Total Protein* 6.6 g/dL (6.0-8.3)
[2023-01-26 07:13] LABS: Magnesium* 1.8 mg/dL (1.5-2.6); Slide Review Reflex No
[2023-01-26 07:15] LABS: C Reactive Protein* 4.3 mg/dL (0.5-1.0)
[2023-01-26 07:26] LABS: Procalcitonin* 0.52 ng/mL (<0.50)
[2023-01-26] MEDS: MAGNESIUM OXIDE 400 MG TABLET PO (09:21)
[2023-01-26] MEDS: LOSARTAN POTASSIUM 50 MG TABLET PO (09:21)
[2023-01-26] MEDS: AMLODIPINE 10 MG TABLET PO (09:21)
[2023-01-26] MEDS: METOPROLOL TARTRATE 25 MG TABLET PO ×2 (09:22→21:22)
[2023-01-26] MEDS: OMEPRAZOLE 20 MG CAPSULE DR 40 MG PO (09:22)
[2023-01-26] MEDS: SODIUM CHLORIDE 0.9 % (FLUSH) 10 ML SYRINGE 5 ML IVF ×2 (10:00→21:23)
[2023-01-26 11:00] VITALS: BP 149/86; PULSE 91; RESP 18; TEMP 37.1; O2SAT 96
--- NOTE | 2023-01-26 13:51 | PM.IMPN1 ---
Progress Note: A&P Assessment and plan (1) Acute alteration in mental status: Problem details: -new/acute evidence of delirium/AMS. Likely due to new an evolving CVA, right frontal lobe. Ongoing progressive metastatic cancer. -IV Ativan ordered and available to help keep patient safe -correct any reversible metabolic or toxic etiologies (none identified) Status: Acute (2) PAF (paroxysmal atrial fibrillation): Problem details: -spontaneously converted 01/24/2023 Continue metoprolol from home dosing regimen. P.r.n. metoprolol to keep rate under 110. Status: Acute (3) History of cardioembolic stroke: Status: Acute (4) HCC (hepatocellular carcinoma): Problem details: Known, metastatic, extremely poor prognosis Hospice appropriate Status: Acute (5) Diabetes: Problem details: Known. Goal is not 1st strict/tight control. Status: Acute (6) Esophageal varices: Problem details: Likely the cause of his chronic blood loss anemia. Transfuse this week at [place]. Hemoglobin drifting down to 8.2. Ordered 1 unit of packed cells 01/24/2023 Status: Acute (7) Chronic systolic CHF (congestive heart failure), NYHA class 3: Problem details: Stable currently Status: Acute (8) Mastoid disorder: Problem details: no evidence of acute or chronic otitis. no adenopathy. observe for now. Status: Acute (9) GI bleed: Problem details: Slow drift in his hemoglobin. Will transfuse 1 unit of packed red blood cells on 01/25. Status: Acute (10) CAP (community acquired pneumonia): Problem details: -continue abx as started at admission despite no radiographic evidence of pneumonia -CT Chest: no pneumonia. small right pleural effusion. -continue to follow cultures clear Status: Acute Plan 1. Reviewed with patient 2. Answered his questions 3. Will discuss with family when they are available 4. Continue with current supportive efforts for now Subjective Time Seen by Provider: 08:00 Date Seen: 01/26/23 Interval history: Hospital day 3. Yesterday evening the patient had a witnessed fall; struck his head; CT scan of the head negative for acute intracranial abnormalities; no change in behaviors her cognition level since then. Continues to have intermittent episodes of confusion and agitation. None since yesterday. Exam Narrative: Exam Narrative: Examined patient in his hospital room and as he is walking in the hallway with his walker. Appears comfortable and in no acute distress. Eating and drinking without difficulties . Vision and hearing are grossly adequate. Alert and oriented to self and place not so much to time or situation. Cooperative. Eating and drinking independently after food prep and setup. Lungs with scattered rhonchi. Heart tones with chaotic rhythm. Abdomen with active bowel sounds, soft, nontender. Extremities without edema. Ambulates with walker in the hallway with standby assist of 1. Const: Vital Signs, click to edit/add: Vital Signs - 24 hr 01/25/23 13:52 01/25/23 15:00 01/25/23 15:00 Temperature 98.3 F Pulse Rate 85 96 Pulse Rate [Pulse Oximeter] Respiratory Rate 16 16 Blood Pressure 145/86 H Blood Pressure [Le ft Arm] Blood Pressure [Ri ght Arm] Pulse Oximetry 100 Oxygen Delivery Me thod 01/25/23 15:00 01/25/23 17:48 01/25/23 18:38 Temperature 98.7 F 98.7 F 99.0 F Pulse Rate Pulse Rate [Pulse Oximeter] 97 97 91 Respiratory Rate 16 20 Blood Pressure Blood Pressure [Le ft Arm] 156/81 H 164/91 H 165/95 H Blood Pressure [Ri ght Arm] Pulse Oximetry 99 98 95 Oxygen Delivery Me thod Room Air Room Air Room Air 01/25/23 19:00 01/25/23 23:00 01/25/23 23:00 Temperature 97.9 F 98.2 F Pulse Rate 84 Pulse Rate [Pulse Oximeter] 77 87 Respiratory Rate 16 18 Blood Pressure Blood Pressure [Le ft Arm] 143/75 H 155/87 H Blood Pressure [Ri ght Arm] Pulse Oximetry 97 98 Oxygen Delivery Me thod Room Air Room Air 01/26/23 03:00 01/26/23 07:00 01/26/23 07:00 Temperature 99.5 F Pulse Rate 82 Pulse Rate [Pulse Oximeter] 71 84 Respiratory Rate 18 18 Blood Pressure Blood Pressure [Le ft Arm] Blood Pressure [Ri ght Arm] 133/79 Pulse Oximetry 96 Oxygen Delivery Me thod Room Air 01/26/23 07:00 01/26/23 11:00 Temperature 98.8 F Pulse Rate Pulse Rate [Pulse Oximeter] 84 91 Respiratory Rate 18 18 Blood Pressure Blood Pressure [Le ft Arm] Blood Pressure [Ri ght Arm] 149/86 H Pulse Oximetry 96 Oxygen Delivery Me thod Labs Labs: Laboratory Results - last 24 hr 01/25/23 01/25/23 01/26/23 06:09 17:20 06:23 WBC 3.80 L 3.49 L RBC 3.75 L 3.50 L Hgb 9.4 L 8.8 L Hct 30.0 L 28.0 L MCV 80 80 MCH 25 L 25 L MCHC 31 L 31 L RDW Coeff of Brissa 17.5 H Plt Count 262 229 Neut % (Auto) 78.4 H Lymph % (Auto) 10.8 L [place] % (Auto) 8.4 Eos % (Auto) 0.8 Baso % (Auto) 0.5 Neut # (Auto) 3.00 Lymph # (Auto) 0.40 L [place] # (Auto) 0.30 Eos # (Auto) 0.00 Baso # (Auto) 0.00 Abs Immat Gran (auto) 0.00 Imm/Tot Granulo (auto) 1.1 VBG pH 7.433 H VBG pCO2 40 VBG pO2 45.1 VBG HCO3 27 Sodium 142 141 Potassium 4.0 3.9 Chloride 108 109 Carbon Dioxide 26 26 Anion Gap 8 6 L BUN 19 16 Creatinine 1.4 1.3 Estimated Creat Clear 54.53 58.73 Estimated GFR 55 60 Glucose 193 H 146 H Calcium 9.3 8.9 Phosphorus 3.2 Magnesium 1.8 Total Bilirubin 0.6 Direct Bilirubin 0.2 AST 31 ALT 17 Alkaline Phosphatase 146 C-Reactive Protein 4.3 H Total Protein 6.6 Albumin 3.2 L Procalcitonin 0.52 H Crossmatch (AHG) See Detail
[2023-01-26] MEDS: NYSTATIN CREAM 30 GM 1 APPLIC TOPICAL ×2 (14:44→21:23)
[2023-01-26 15:00] VITALS: BP 147/86; PULSE 84; PULSE 85; RESP 18; TEMP 37.3; O2SAT 97
--- NOTE | 2023-01-26 18:56 | PC.NURSE ---
Nursing Care Hours: [id number] Pt this shift oriented to self. Ate light breakfast then ate full lunch and dinner with family in the room. Walked the pugh x1. Used the toilet for bowel and bladder elimination x3. Patient stated this is the first time i have used the toilet in a month. Pt did set the bed alarm off to go to bathroom, adjusto writer operator was able to assist pt with walker to bathroom without issue. Coban wrap from lab draw in morning left the inside of elbow with rash or friction abrasion. Pt c/o pain to arm, order for nystatin started to prevent further breakdown or irritation. Patient crying when talking about grand kids with adjusto writer operator after they left. Pt remained at bedside and pt relaxed.
[2023-01-26 19:00] VITALS: BP 166/93; PULSE 95; RESP 18; TEMP 37.8; O2SAT 97
[2023-01-26] MEDS: AZITHROMYCIN 250 MG TABLET 500 MG PO (21:22)
[2023-01-26] MEDS: ACETAMINOPHEN 325 MG TABLET 650 MG PO (21:23)
[2023-01-26] MEDS: MELATONIN 3 MG TABLET PO (21:43)
[2023-01-26 23:00] VITALS: RESP 18
[2023-01-27] VITALS (8 sets, daily range): BP systolic 122–183; BP diastolic 77–103; PULSE 54–154; RESP 16–18; TEMP 36.9–37.2; O2SAT 95–98
--- NOTE | 2023-01-27 05:10 | PC.NURSE ---
PATIENT ALERT TO SELF, COOPERATIVE, USING CALL LIGHT, DECLINING PAIN, INCONTINENT OF URINE.
[2023-01-27] MEDS: MAGNESIUM OXIDE 400 MG TABLET PO (09:32)
[2023-01-27] MEDS: METOPROLOL TARTRATE 25 MG TABLET PO ×2 (09:32→21:37)
[2023-01-27] MEDS: LOSARTAN POTASSIUM 50 MG TABLET PO (09:32)
[2023-01-27] MEDS: AMLODIPINE 10 MG TABLET PO (09:33)
[2023-01-27] MEDS: NYSTATIN CREAM 30 GM 1 APPLIC TOPICAL ×3 (09:33→21:38)
[2023-01-27] MEDS: OMEPRAZOLE 20 MG CAPSULE DR 40 MG PO (09:33)
[2023-01-27] MEDS: SODIUM CHLORIDE 0.9 % (FLUSH) 10 ML SYRINGE 5 ML IVF ×2 (09:34→21:38)
[2023-01-27 12:59] LABS: Hematocrit 29.1 % (37.0-53.0); Hemoglobin* 9.1 gm/dL (13.5-17.5); Mean Corpuscular HGB Conc 31 gm/dL (32-36); Mean Corpuscular Hemoglobin 25 pg (26-34); Mean Corpuscular Volume 80 fL (80-100); Platelet Count* 228 K/uL (140-440); Red Blood Count 3.64 m/uL (4.30-5.90); White Blood Count* 3.68 K/uL (4.50-11.00)
[2023-01-27 13:01] LABS: Slide Review Reflex No
--- NOTE | 2023-01-27 13:42 | P.IMPN_ITS ---
Progress Note: A&P Assessment and plan (1) Acute alteration in mental status: Problem details: -new/acute evidence of delirium/AMS. Likely due to new or evolving CVA, right frontal lobe. Ongoing progressive metastatic cancer. -IV Ativan ordered and available to help keep patient safe -correct any reversible metabolic or toxic etiologies (none identified) Status: Acute (2) PAF (paroxysmal atrial fibrillation): Problem details: -spontaneously converted 01/24/2023 Continue metoprolol from home dosing regimen. P.r.n. metoprolol to keep rate under 110. Status: Acute (3) History of cardioembolic stroke: Problem details: Multiple prior strokes including a subacute stroke. Likely has vascular nataliia ntia in association with this. Status: Acute (4) HCC (hepatocellular carcinoma): Problem details: Known, metastatic, extremely poor prognosis Hospice appropriate Status: Acute (5) Diabetes: Problem details: Known. Goal is not 1st strict/tight control. Status: Acute (6) Esophageal varices: Problem details: Likely the cause of his chronic blood loss anemia. Transfuse this week at [place]. Hemoglobin drifting down to 8.2. Ordered 1 unit of packed cells 01/24/2023 Status: Acute (7) Chronic systolic CHF (congestive heart failure), NYHA class 3: Problem details: Stable currently Status: Acute (8) Mastoid disorder: Problem details: no evidence of acute or chronic otitis. no adenopathy. observe for now. Status: Acute (9) GI bleed: Problem details: Slow drift in his hemoglobin. Will transfuse 1 unit of packed red blood cells on 01/25. Status: Acute (10) CAP (community acquired pneumonia): Problem details: -continue abx as started at admission despite no radiographic evidence of pneumonia, ceftriaxone 1 g IV daily -CT Chest: no pneumonia. small right pleural effusion. -continue to follow cultures clear Status: Acute Plan 1. Long discussion with patient's , Miguelina. Also discussed with patient. Patient and family desire that patient be discharged home with hospice support. Patient does not wish to be hospitalized hereafter if at all possible or received any further blood transfusions or any other disease directed diagnostic or interventional efforts. For now he will continue on his anti-rejection medication, Cyclosporin. More discussion will need to be held over time about discontinuation of various medications he presently is receiving. and patient want focus to be on comfort. 2. Continue current support efforts here in the hospital. 3. Will continue to work with case management social worker starting tomorrow, Saturday, to try to establish a safe discharge disposition plan. Time Spent With Patient Total time spent: 60 minute Subjective Time Seen by Provider: 09:00 Date Seen: 01/27/23 Interval history: Hospital day 4. Continues to have intermittent episodes of crying. Has not had any further episodes of agitation. Enjoyed spending the day with his family members yesterday, particularly his grandchildren and great grandchildren. Indicates he is starting to feel more confident about returning home with his family support. Exam Narrative: Exam Narrative: Examined patient in his hospital room. Appears comfortable and in no acute distress. Vision and hearing are grossly normal. Alert and oriented to self, place, in part to time, in part to situation. Recognized his . Friendly cooperative. T-max yesterday 100? F. Afebrile now. Lungs clear to auscultation. Heart tones with regular rhythm. Abdomen with active bowel sounds, soft. Ambulates with standby assist. Const: Vital Signs, click to edit/add: Vital Signs - 24 hr 01/26/23 15:00 01/26/23 15:00 01/26/23 15:00 Temperature 99.1 F Pulse Rate 85 Pulse Rate [Pulse Oximeter] 84 84 Respiratory Rate 18 18 Blood Pressure [Le ft Arm] Blood Pressure [Ri ght Arm] 147/86 H Pulse Oximetry 97 Oxygen Delivery Me thod Room Air 01/26/23 19:00 01/26/23 23:00 01/27/23 03:00 Temperature 100.0 F H 98.9 F Pulse Rate Pulse Rate [Pulse Oximeter] 95 76 Respiratory Rate 18 18 16 Blood Pressure [Le ft Arm] 141/85 H Blood Pressure [Ri ght Arm] 166/93 H Pulse Oximetry 97 98 Oxygen Delivery Me thod Room Air Room Air 01/27/23 07:30 01/27/23 07:30 Temperature 98.7 F Pulse Rate Pulse Rate [Pulse Oximeter] 87 87 Respiratory Rate 16 16 Blood Pressure [Le ft Arm] Blood Pressure [Ri ght Arm] 183/103 H Pulse Oximetry 96 Oxygen Delivery Me thod Room Air Labs Labs: Laboratory Results - last 24 hr 01/27/23 07:49 WBC 3.68 L RBC 3.64 L Hgb 9.1 L Hct 29.1 L MCV 80 MCH 25 L MCHC 31 L Plt Count 228
--- NOTE | 2023-01-27 15:03 | PC.NURSE ---
VSS AND AFEBRILE. DENIED PAIN. TOLERATED REGULAR DIET WITH NO C/O N/V. PLEASANT AND COOPERATIVE. UP WITH A1, WALKER AND GAIT BELT TO RECLINER FOR MEALS AND TO BATHROOM. PATIENT DID WALK IN HALLWAY. HERE TO VISIT. TEARFUL AT TIMES.
--- NOTE | 2023-01-27 19:09 | PC.NURSE ---
End of Shift: Patient pleasant and cooperative. Patient vitally stable, lungs clear, BS WNL, IV SL. Patient denies pain and tolerating regular diet, eating about 25% of dinner. Patient urinating and had 1 BM this shift. Patient walked the halls this shift.
[2023-01-27] MEDS: MELATONIN 3 MG TABLET PO (21:37)
[2023-01-27] MEDS: AZITHROMYCIN 250 MG TABLET 500 MG PO (21:37)
[2023-01-27] MEDS: cefTRIAXone 1 GM in 0.9 % SODIUM CHLORIDE Mini-bag 100 ML IVPB (21:38)
[2023-01-28 03:00] VITALS: PULSE 81; RESP 16; O2SAT 96
--- NOTE | 2023-01-28 04:30 | PC.NURSE ---
PATIENT ORIENTED TO SELF AND PLACE, COOPERATIVE, UP SBA WITH WALKER BELT, AMBULATED HALLWAYS, FAMILY VISITING LATE INTO THE EVENING, DECLINING PAIN, INCONTINENT OF BLADDER, PATIENT EXPRESSED EXCITEMENT TOWARDS GOING HOME ON 01/28.
[2023-01-28 08:15] VITALS: BP 159/97; PULSE 88; RESP 16; TEMP 36.8; O2SAT 98
[2023-01-28] MEDS: MAGNESIUM OXIDE 400 MG TABLET PO (09:57)
[2023-01-28] MEDS: LOSARTAN POTASSIUM 50 MG TABLET PO (09:57)
[2023-01-28] MEDS: AMLODIPINE 10 MG TABLET PO (09:57)
[2023-01-28] MEDS: OMEPRAZOLE 20 MG CAPSULE DR 40 MG PO (09:58)
[2023-01-28] MEDS: METOPROLOL TARTRATE 25 MG TABLET PO (09:58)
[2023-01-28] MEDS: SODIUM CHLORIDE 0.9 % (FLUSH) 10 ML SYRINGE 5 ML IVF (09:59)
[2023-01-28] MEDS: NYSTATIN CREAM 30 GM 1 APPLIC TOPICAL ×2 (09:59→14:52)
[2023-01-28 11:00] VITALS: BP 164/85; PULSE 83; RESP 16; TEMP 37; O2SAT 97
--- NOTE | 2023-01-28 12:50 | PM.IMPN1 ---
Progress Note: A&P Assessment and plan (1) Acute alteration in mental status: Problem details: -new/acute evidence of delirium/AMS. Likely due to new or evolving CVA, right frontal lobe. Ongoing progressive metastatic cancer. -IV Ativan ordered and available to help keep patient safe -correct any reversible metabolic or toxic etiologies (none identified) Status: Acute (2) PAF (paroxysmal atrial fibrillation): Problem details: -spontaneously converted 01/24/2023 -Continue metoprolol from home dosing regimen. P.r.n. metoprolol to keep rate under 110. Status: Acute (3) History of cardioembolic stroke: Problem details: Multiple prior strokes including a subacute stroke. Likely has vascular dementia in association with this. Status: Acute (4) HCC (hepatocellular carcinoma): Problem details: Known, metastatic, extremely poor prognosis Hospice appropriate Status: Acute (5) Diabetes: Problem details: Known. Goal is not 1st strict/tight control. Status: Acute (6) Esophageal varices: Problem details: Likely the cause of his chronic blood loss anemia. Transfuse this week at [place]. Hemoglobin drifting down to 8.2. Ordered 1 unit of packed cells 01/24/2023 Status: Acute (7) Chronic systolic CHF (congestive heart failure), NYHA class 3: Problem details: Stable currently Status: Acute (8) Mastoid disorder: Problem details: no evidence of acute or chronic otitis. no adenopathy. observe for now. Status: Acute (9) GI bleed: Problem details: Slow drift in his hemoglobin. Will transfuse 1 unit of packed red blood cells on 01/25. Status: Acute (10) CAP (community acquired pneumonia): Problem details: -continue abx as started at admission despite no radiographic evidence of pneumonia, ceftriaxone 1 g IV daily -CT Chest: no pneumonia. small right pleural effusion. -continue to follow cultures clear Status: Acute Plan 1. Reviewed impression with patient today. 2. Yesterday had a long conversation with the patient's and the patient. Plan still is to try to return home with hospice support and support from family and friends. 3. Patient agreeable with above stated plans and recommendations. Time Spent With Patient Total time spent: 40 min Subjective Time Seen by Provider: 08:20 Date Seen: 01/28/23 Interval history: Hospital day 5. Continues to have intermittent episodes of crying. Has not had any further episodes of agitation. For the most part engaging in dialogue in discussion about situation and circumstances immediately around him. Did not recognize a friend of the family who was visiting him yesterday and has known the patient for over 20 years. Did recognize his . Feeling more confident about returning home with his family support. Await hospice services to assist with transition from hospital to the home. Clinical Documentation Improvement Specialist working with patient and family. Exam Narrative: Exam Narrative: Examine him in his hospital room. Appears comfortable in no acute distress. Vision and hearing are grossly adequate. Alert and oriented to self, place, in part to time, in part to situation. Has a confused look about him. Able to engage in meaningful conversation about the moment. Abdomen active bowel sounds, soft. Independent with transfer, station, gait with use of walker and standby assist. Const: Vital Signs, click to edit/add: Vital Signs - 24 hr 01/27/23 15:00 01/27/23 16:40 01/27/23 19:00 Temperature 98.9 F 98.9 F Pulse Rate [Pulse Oximeter] 54 L 54 L 154 H Respiratory Rate 18 18 18 Blood Pressure [Ri ght Arm] 149/77 H 122/99 H Pulse Oximetry 97 97 Oxygen Delivery Me thod Room Air Room Air 01/27/23 22:00 01/27/23 23:00 01/28/23 03:00 Temperature Pulse Rate [Pulse Oximeter] 91 81 Respiratory Rate 16 16 Blood Pressure [Ri ght Arm] Pulse Oximetry 96 Oxygen Delivery Me thod Room Air Documenting provider has reviewed patient's vital signs: yes Labs Labs: Laboratory Results - last 24 hr 01/27/23 07:49 WBC 3.68 L RBC 3.64 L Hgb 9.1 L Hct 29.1 L MCV 80 MCH 25 L MCHC 31 L Plt Count 228
--- NOTE | 2023-01-28 14:38 | PC.SOCIAL ---
Discharge planning- Met with pt and pt's family in room to discuss discharge plans. Pt's family would like to take pt home with Hospice in place. Pt's family preference is [facility] agency. Phone call to [place] at Ext. [phone] to see if there are openings. [place] states [facility] is able to accept pt and open pt tomorrow. Pt will discharge to home today with family. Provided update to family and informed that the Hospice nurse will reach out to them to set an initial appointment for tomorrow. Family would like to take pt home today. Provided update to nursing. Social work will follow up as needed.
--- NOTE | 2023-01-28 14:47 | PM.DS1 ---
DS: Providers Provider Time Seen by Provider: 14:30 Date Seen: 01/28/23 Date of admission: 01/25/23 14:26 Primary care physician: Ferny Hensley MD Admitting Clinician: Ector Barrios MD Consults: 01/24/23 04:47 Consult to Occupational Therapy [CONS] Routine Comment: Reason(s) for OT Consult:: Evaluate and Treat Any Restrictions?:: No Restrictions Consult to Physical Therapy [CONS] Routine Comment: Reason(s) for PT Consult:: Evaluate and Treat Any Restrictions?:: No Restrictions Attending Physician on discharge: Edward Parsons MD Date of Discharge: 01/28/23 DS: Diagnosis Discharge Diagnosis (1) Acute alteration in mental status: Status: Acute Problem details: -new/acute evidence of delirium/AMS. Likely due to new or evolving CVA, right frontal lobe. Ongoing progressive metastatic cancer. -IV Ativan ordered and available to help keep patient safe -correct any reversible metabolic or toxic etiologies (none identified) (2) CAP (community acquired pneumonia): Status: Acute Problem details: -continue abx as started at admission despite no radiographic evidence of pneumonia, ceftriaxone 1 g IV daily x 5 days completed in hospital with no additional oral antibiotics thereafter. -CT Chest: no pneumonia. small right pleural effusion. -continue to follow cultures clear (3) HCC (hepatocellular carcinoma): Status: Acute Problem details: Known, metastatic, extremely poor prognosis Hospice appropriate (4) GI bleed: Status: Acute Problem details: Slow drift in his hemoglobin. Transfused 1 unit of packed red blood cells on 01/25. (5) Esophageal varices: Status: Acute Problem details: Likely the cause of his chronic blood loss anemia. Transfused this week at [place]. Hemoglobin drifting down to 8.2. Ordered 1 unit of packed cells 01/24/2023 (6) PAF (paroxysmal atrial fibrillation): Status: Acute Problem details: -spontaneously converted 01/24/2023 -Continue metoprolol from home dosing regimen. P.r.n. metoprolol to keep rate under 110. -discontinued apixaban anticoagulation, given evolving blood loss. (7) Chronic systolic CHF (congestive heart failure), NYHA class 3: Status: Acute Problem details: Stable currently (8) Diabetes: Status: Acute Problem details: Known. Goal is not for strict/tight control. (9) History of cardioembolic stroke: Status: Acute Problem details: Multiple prior strokes including a subacute stroke. Likely has vascular dementia in association with this. (10) Mastoid disorder: Status: Acute Problem details: no evidence of acute or chronic otitis. no adenopathy. observe for now. DS: Summary Hospital Course Hospital Course: HPI:Danielle Harrell is a 67 year old male with a h/o HCC s/p liver transplantation in 2018 with subsequent progression of disease on oral chemo with Sorafenib, IDDM2, PAF (Eliquis currently on hold), GI bleed scheduled for colonoscopy on 01/24, HTN, h/o lung SCLC in 1995 who presents to the ED with weakness, disorientation. The patient received a transfusion today for a chronic GI bleed, hgb was 6.8. Received 1 unit per records thru [facility], now hgb is 8.0. No active bleeding is reports, but patient presents to the ED with some disorientation and weakness, and he is deemed unsafe to go home by staff, so he is admitted. The patient is somewhat somnolent, answers questions but otherwise does not offer information. History is obtained from family who is at bedside. Patient seemed more somnolent and confused after his transfusion today. He was also complaining of shortness of breath, as well as right sided abdominal pain. Family did not notice n/v. ROS is largely negative except for weakness, decreased level of responsiveness, but he was still able to walk. Patient himself denies any symptoms at this time, although he does exhibit confusion, he is oriented only to self. No sick contacts. In hospital he received another 1 unit of packed red blood cells. Hemoglobin remained relatively stable thereafter, fluctuating between 8.8 and 9.1. No overt GI bleed. We did stop his anticoagulation with apixaban. Paroxysmal atrial fibrillation rate was controlled with beta-maryann in hospital. Patient had episodes of confusion and agitation while in the hospital warranting fairly intense nonpharmacologic as well as pharmacologic supportive measures. Pharmacologic measures included short-term use of IV droperidol, IV and oral olanzapine. After roughly 48 hours of this his thoughts, emotions, and behaviors normalized. Back to his baseline state of mind, including he does cry easily. Over the course of the hospitalization the patient and family opted to changes paradigm of care to comfort focus treatments only with DNR DNI resuscitation status. They declined any additional disease directed diagnostic or interventional efforts. They appropriately decided to return home with support from family and friends as well as hospice services. Status at Discharge Functional status at discharge: uses cane/walker Overall status at discharge: patient is progressing back to baseline Time Spent with Patient Time attestation: Total time spent providing and/or coordinating discharge services: Time spent: Greater than 30 minutes Exam Narrative: Exam Narrative: Examine him in his hospital room. Appears comfortable in no acute distress. Vision and hearing are grossly adequate. Alert and oriented to self, place, in part to time, in part to situation. Has a confused look about him. Able to engage in meaningful conversation about the moment. Abdomen active bowel sounds, soft. Independent with transfer, station, gait with use of walker and standby assist. Const: Vital Signs, click to edit/add: Vital Signs - 24 hr 01/27/23 15:00 01/27/23 16:40 01/27/23 19:00 Temperature 98.9 F 98.9 F Pulse Rate [Pulse Oximeter] 54 L 54 L 154 H Respiratory Rate 18 18 18 Blood Pressure [Ri ght Arm] 149/77 H 122/99 H Pulse Oximetry 97 97 Oxygen Delivery Me thod Room Air Room Air 01/27/23 22:00 01/27/23 23:00 01/28/23 03:00 Temperature Pulse Rate [Pulse Oximeter] 91 81 Respiratory Rate 16 16 Blood Pressure [Ri ght Arm] Pulse Oximetry 96 Oxygen Delivery Me thod Room Air Documenting provider has reviewed patient's vital signs: yes DS: Data Data Completed and Pending Labs on day of discharge: Preliminary micro results at discharge 01/23/23 21:14 Blood Culture - Preliminary Blood NO GROWTH AFTER 96 HOURS 01/23/23 21:06 Blood Culture - Preliminary Blood NO GROWTH AFTER [address] scan - head: Attestation: I have reviewed the pertinent imaging results. Radiologist's impression: 01/24/2023 IMPRESSION: No intracranial hemorrhage or hydrocephalus. Right mastoid effusion. 01/25/2023 IMPRESSION: 1. No acute intracranial abnormality. 2. Stable moderate chronic small vessel disease and moderate generalized parenchymal volume loss. 3. Stable complete opacification of the right mastoid air cells and middle ear cavity. MRI - head: Radiologist's impression: 01/24/2023 IMPRESSION: 1. No acute intracranial abnormality. 2. Small late subacute to chronic infarction within the anterior left frontal white matter. 3. Advanced chronic microvascular ischemic changes with superimposed chronic lacunar infarctions. 4. [id number] diffuse cerebral volume loss. 5. Large right mastoid effusion. CT scan - chest: Attestation: I have reviewed the pertinent imaging results. Radiologist's impression: IMPRESSION: 1. Small right pleural effusion of unclear etiology on CT. 2. Large abdominal mass and left axillary metastases. Suspect a few small right-sided pulmonary metastases as well. X-ray of pelvis and hips: Attestation: I have reviewed the pertinent imaging results. Radiologist's impression: No acute bony abnormalities Discharge Plan Discharge Disposition: Xfer Home- (Hospice) Date of Admission: 01/25/23 14:26 Attending Provider on Discharge: Edward Parsons Primary Care Provider: Ferny Hensley Condition: Stable Anticipated Discharge Date/Time: 01/28/23 15:30 Discharge Medications: New hydromorphone 2 mg Tablet 2 mg PO Q4H PRN (Reason: Pain) 7 Days Qty: 30 0RF Continued losartan 50 mg tablet 50 mg PO DAILY methocarbamol 500 mg tablet 250 mg PO QID PRN (Reason: muscle spasm) magnesium oxide 400 mg (241.3 mg magnesium) tablet 400 mg PO DAILY amlodipine 10 mg tablet 10 mg PO DAILY pantoprazole 40 mg tablet,delayed release (DR/EC) 40 mg PO QAM cyclosporine modified 100 mg capsule 100 mg PO Q12H ondansetron 4 mg tablet,disintegrating 4 mg PO Q8H PRN (Reason: nausea/vomiting) insulin aspart U-100 [Novolog FlexPen U-100 Insulin] 100 unit/mL (3 mL) insulin pen 1 - 5 unit subcut 3XD metoprolol tartrate 25 mg tablet 25 mg PO BID sorafenib 200 mg tablet 400 mg PO BID Tab-A-Hawa Multivitamin w-iron 15 mg iron- 400 mcg tablet 1 tab PO DAILY diclofenac sodium 1 % gel topical BID Discontinued Eliquis 5 mg tablet 5 mg PO BID hydromorphone [Dilaudid] 8 mg tablet 8 mg PO TID PRN (Reason: pain) Qty: 40 0RF Discharge Orders: Discharge Order (Routine); Ordered 01/28/23 Ordered By: Edward Parsons Additional Instructions: 1. Home with family and friends with hospice support; 2. Hospice referral: terminal condition with desire for comfort focused treatments only with DNR/DNI resuscitation status, and he declines any additional disease directed diagnostic or interventional efforts; 3. With evolving and fluctuating cognitive status, does require 24 hour supervision. Activity Level: Activity as Tolerated and No strenuous activity Discharge Diet: Regular Follow Up Appointments: Ferny Hensley MD [Primary Care Provider] - Forms: [employer] Info Instructions
--- NOTE | 2023-01-28 17:42 | PC.NURSE ---
Pt discharged, 1530. VSS. RA. Denies pain. PIV removed prior shift. Discharge education done w/ pt and spouse- instructions given. Rx sent to pharmacy. Home hospice to open case tomorrow, 01/29. Discharged to spouse w/ belongings, walked out by aid in w/c. Shanelle Mac RN
== END 2023-01-28 15:53 | disposition hospice, home (50) | DRG 435 ==
LOC: ED 01-24 01:11 → MEDSURG 01-24 01:33
PROVIDERS: Hospitalist; Internal Medicine; Admitting Provider Family Medicine; Emergency Provider Family Medicine; PCP Family Medicine; Visit Provider Family Medicine
DX: C22.0 Liver cell carcinoma (principal); I63.9 Cerebral infarction, unspecified; J18.9 Pneumonia, unspecified organism; J91.8 Pleural effusion in other conditions classified elsewhere; K92.2 Gastrointestinal hemorrhage, unspecified; Z94.4 Liver transplant status; I50.22 Chronic systolic (congestive) heart failure; C77.3 Secondary and unspecified malignant neoplasm of axilla and upper limb lymph nodes; C78.01 Secondary malignant neoplasm of right lung; C79.89 Secondary malignant neoplasm of other specified sites; I85.00 Esophageal varices without bleeding; D50.0 Iron deficiency anemia secondary to blood loss (chronic); R53.1 Weakness; E86.0 Dehydration; R41.0 Disorientation, unspecified; I11.0 Hypertensive heart disease with heart failure; I48.0 Paroxysmal atrial fibrillation; E11.9 Type 2 diabetes mellitus without complications; H74.90 Unspecified disorder of middle ear and mastoid, unspecified ear; W19.XXXA Unspecified fall, initial encounter; Y92.239 Unspecified place in hospital as the place of occurrence of the external cause; Z86.73 Personal history of transient ischemic attack (TIA), and cerebral infarction without residual deficits
CPT/HCPCS: 36415; 36430; 70450; 70553; 71045; 71250; 72170; 73501; 80048; 80053; 80069; 80076; 81001; 82140; 82803; 83605; 83690; 83735; 84145; 84443; 85025; 85027; 86140; 86850; 86900; 86901; 86922; 87040; 87086; 87635; 94761; 97110; 97116; 97162; 97165; 97530; 97535; 99284; 99285; G0378; A9270; A9575; J0456; J0696; J1170; J2060; J7042; J7050; P9016